=== PATIENT | male | born 1945 | race Hispanic/Latino ===

== ENCOUNTER 2021-01-25 16:30 | Inpatient (IN) | payer OTHER ==
[~2021-01-25] VITALS: Ht 185.4 cm; Wt 82.8 kg
[2021-01-25 17:44] LABS: BASOPHILS # (AUTO) 0.1 (0.0-0.1); BASOPHILS % 1.4 % (0.0-1.0); EOSINOPHILS # (AUTO) 0.4 (0.0-0.4); EOSINOPHILS % 5.5 % (0.0-6.0); HEMATOCRIT 31.2 % (38.2-49.6); HEMOGLOBIN 9.1 g/dL (14.0-18.0); LYMPHOCYTES # (AUTO) 0.5 (1.0-3.2); LYMPHOCYTES % 7.6 % (18.0-39.1); MEAN CORPUSCULAR HEMOGLOBIN 28.1 pg (28-32); MEAN CORPUSCULAR HGB CONC 29.2 g/dL (31-35); MEAN CORPUSCULAR VOLUME 96.3 fL (81-99); MONOCYTES # (AUTO) 0.4 (0.2-0.8); MONOCYTES % 6.2 % (4.4-11.3); NEUTROPHILS # (AUTO) 5.1 (2.1-6.9); PLATELET COUNT 195 x10e3/uL (140-360); RED BLOOD COUNT 3.24 x10e6/uL (4.3-5.7); RED CELL DISTRIBUTION WIDTH 19.6 % (11.7-14.4)
[2021-01-25 17:50] LABS: INR 2.55; PROTHROMBIN TIME 29.4 seconds (11.9-14.5)
[2021-01-25 17:51] LABS: PARTIAL THROMBOPLASTIN TIME 40.5 seconds (23.8-35.5)
[2021-01-25 18:04] LABS: AMPHETAMINES SCREEN,URINE NEGATIVE (NEGATIVE); BENZODIAZEPINES SCREEN,URINE NEGATIVE (NEGATIVE); PHENCYCLIDINE SCREEN,URINE NEGATIVE (NEGATIVE)
[2021-01-25 18:07] LABS: CLARITY,URINE CLOUDY (CLEAR); COLOR,URINE AMBER (YELLOW); KETONES,URINE NEGATIVE (NEGATIVE); LEUKOCYTE ESTERASE ,URINE NEGATIVE (NEGATIVE); NITRITE,URINE NEGATIVE (NEGATIVE); PROTEIN,URINE DIPSTICK 2+ (NEGATIVE); RBC,URINE >50 /HPF (0-5); URINE UROBILINOGEN 0.2 mg/dL (0.2 - 1)
[2021-01-25 18:08] LABS: ALBUMIN 1.4 g/dL (3.5-5.0); ALBUMIN/GLOBULIN RATIO 0.3 (0.8-2.0); ANION GAP 19.1 mmol/L (8-16); CALCIUM 7.5 mg/dL (8.4-10.2); CREATININE, SERUM 7.28 mg/dL (0.72-1.25); POTASSIUM 5.1 mmol/L (3.5-5.1)
[2021-01-25 18:09] LABS: CREATINE KINASE MB 1.9 ng/mL (0-5.0)
[2021-01-25 18:22] LABS: BACTERIA,URINE MANY /HPF; EPITHELIAL CELLS,URINE FEW /LPF
[2021-01-25 18:59] LABS: ABG HCO3 17 mmol/L (22-26); ABG PCO2 36 mmHg (35-45); ABG PH 7.29 (7.35-7.45); ABG PO2 172 mmHg (80-105); ABG TCO2 18
[2021-01-25 21:00] VITALS: BP 107/72
[2021-01-25] MEDS ORDERED: PIPERACILLIN/TAZOBACTAM 3.375 GM in SODIUM CHLORIDE 0.9% 50ML 50 ML IV ONE (21:00)
[2021-01-25] MEDS: PIPERACILLIN/TAZOBACTAM 2.25 GM in SODIUM CHLORIDE 0.9% 50ML 50 ML IV SCH (21:00)
[2021-01-25] MEDS ORDERED: ONDANSETRON HCL INJ 2MG/ML 2ML 2 MG/ML VIAL IV PRN (21:45)
[2021-01-25 22:00] VITALS: BP 142/62
[2021-01-26] VITALS (8 sets, daily range): BP systolic 97–108; BP diastolic 59–78
[2021-01-26] MEDS ORDERED: METOPROLOL SUCC25 MG PO (00:15)
[2021-01-26] MEDS ORDERED: HYDROXYZINE HCL10 MG PO (00:15)
[2021-01-26] MEDS ORDERED: PLAVIX75 MG PO (00:15)
[2021-01-26] MEDS ORDERED: LEXAPRO10 MG PO (00:15)
[2021-01-26] MEDS ORDERED: KEPPRA500 MG PO (00:16)
[2021-01-26] MEDS ORDERED: XARELTO20 MG PO (00:16)
[2021-01-26] MEDS: PIPERACILLIN/TAZOBACTAM 2.25 GM in SODIUM CHLORIDE 0.9% 50ML 50 ML IV SCH ×3 (05:06→21:12)
[2021-01-26 05:41] LABS: BASOPHILS # (AUTO) 0.1 (0.0-0.1); EOSINOPHILS # (AUTO) 0.2 (0.0-0.4); EOSINOPHILS % 3.7 % (0.0-6.0); HEMATOCRIT 31.2 % (38.2-49.6); HEMOGLOBIN 9.1 g/dL (14.0-18.0); LYMPHOCYTES # (AUTO) 0.7 (1.0-3.2); LYMPHOCYTES % 13.3 % (18.0-39.1); MEAN CORPUSCULAR HEMOGLOBIN 28.4 pg (28-32); MEAN CORPUSCULAR HGB CONC 29.2 g/dL (31-35); MEAN CORPUSCULAR VOLUME 97.5 fL (81-99); MONOCYTES # (AUTO) 0.7 (0.2-0.8); MONOCYTES % 14.5 % (4.4-11.3); NEUTROPHILS # (AUTO) 3.4 (2.1-6.9); NEUTROPHILS % 67.3 % (38.7-80.0); PLATELET COUNT 165 x10e3/uL (140-360); RED CELL DISTRIBUTION WIDTH 19.5 % (11.7-14.4)
[2021-01-26 06:14] LABS: ALBUMIN 1.3 g/dL (3.5-5.0); ALBUMIN/GLOBULIN RATIO 0.2 (0.8-2.0); ANION GAP 18.8 mmol/L (8-16); CALCIUM 7.8 mg/dL (8.4-10.2); CREATININE, SERUM 7.4 mg/dL (0.72-1.25); POTASSIUM 4.8 mmol/L (3.5-5.1)
[2021-01-26 06:49] LABS: CREATINE KINASE MB 1.9 ng/mL (0-5.0)
[2021-01-26 08:18] LABS: % IRON SATURATION 27 % (15-50); IRON 43 ug/dL (65-175); TOTAL IRON BINDING CAPACITY 157 ug/dL (261-478); TRANSFERRIN 112 mg/dL (174-364)
[2021-01-26 08:28] LABS: ANISOCYTOSIS MODERATE; HYPOCHROMASIA SLIGHT; PLATELET ESTIMATE ADEQUATE; PLATELET MORPHOLOGY COMMENT NORMAL; RBC MORPHOLOGY COMMENT ABNORMAL
[2021-01-26] MEDS ORDERED: LIDOCAINE HCL 1% LOCAL INJ 20 ML VIAL ONE (12:07)
[2021-01-26] MEDS ORDERED: LIDOCAINE HCL 2% LOCAL 20 ML VIAL ONE (12:28)
[2021-01-26] MEDS ORDERED: HEPARIN SOD/SOD CHLORIDE 1,000 ML ONE (12:29)
[2021-01-26] MEDS ORDERED: HEPARIN SOD (PORCINE) 1000 UNIT/ML SDV IV PRN (14:15)
[2021-01-26] MEDS ORDERED: SODIUM CHLORIDE 0.9% 1000ML 2,000 ML IV PRN (14:15)
[2021-01-26] MEDS ORDERED: MANNITOL 25% 12.5GM/50 ML VIAL IV PRN (14:15)
[2021-01-26] MEDS: IRON SUCROSE 100 MG in SODIUM CHLORIDE 0.9% 100 ML 100 ML IV SCH (16:40)
[2021-01-26] MEDS: SODIUM BICARBONATE 8.4% 150 ML in DEXTROSE 5% 1,000 ML IV SCH (16:40)
[2021-01-26 19:06] LABS: FERRITIN 329.26 ng/mL (21.81-274.66); THYROID STIMULATING HORMONE 1.755 uIU/mL (0.350-4.940)
[2021-01-26 19:14] LABS: CREATINE KINASE MB 2.1 ng/mL (0-5.0)
[2021-01-26 20:55] LABS: CREATINE KINASE MB 2.2 ng/mL (0-5.0)
[2021-01-26] MEDS: HEPARIN SOD (PORCINE) 5,000 UNIT/ML VIAL SC SCH (22:00)
[2021-01-26] MEDS: Morphine 2mg Syringe 2 MG/ML SYR IV PRN (22:40)
[2021-01-27] VITALS (8 sets, daily range): BP systolic 90–159; BP diastolic 50–84
[2021-01-27 05:56] LABS: BASOPHILS % 0.8 % (0.0-1.0); EOSINOPHILS # (AUTO) 0.4 (0.0-0.4); EOSINOPHILS % 8.4 % (0.0-6.0); HEMATOCRIT 25.7 % (38.2-49.6); HEMOGLOBIN 7.8 g/dL (14.0-18.0); LYMPHOCYTES # (AUTO) 0.5 (1.0-3.2); LYMPHOCYTES % 10.1 % (18.0-39.1); MEAN CORPUSCULAR HEMOGLOBIN 28.2 pg (28-32); MEAN CORPUSCULAR HGB CONC 30.4 g/dL (31-35); MEAN CORPUSCULAR VOLUME 92.8 fL (81-99); MONOCYTES # (AUTO) 0.6 (0.2-0.8); MONOCYTES % 13.5 % (4.4-11.3); NEUTROPHILS # (AUTO) 3.2 (2.1-6.9); NEUTROPHILS % 66.8 % (38.7-80.0); RED BLOOD COUNT 2.77 x10e6/uL (4.3-5.7); RED CELL DISTRIBUTION WIDTH 19.7 % (11.7-14.4)
[2021-01-27] MEDS: PIPERACILLIN/TAZOBACTAM 2.25 GM in SODIUM CHLORIDE 0.9% 50ML 50 ML IV SCH ×3 (06:00→21:57)
[2021-01-27] MEDS: HEPARIN SOD (PORCINE) 5,000 UNIT/ML VIAL SC SCH ×3 (06:00→22:07)
[2021-01-27 06:19] LABS: ALBUMIN 1.1 g/dL (3.5-5.0); ALBUMIN/GLOBULIN RATIO 0.2 (0.8-2.0); ANION GAP 16.2 mmol/L (8-16); CALCIUM 7.2 mg/dL (8.4-10.2); CREATININE, SERUM 5.76 mg/dL (0.72-1.25); POTASSIUM 4.2 mmol/L (3.5-5.1)
[2021-01-27 06:40] LABS: PLATELET COUNT 130 x10e3/uL (140-360)
[2021-01-27] MEDS: SODIUM BICARBONATE 8.4% 150 ML in DEXTROSE 5% 1,000 ML IV SCH (12:12)
[2021-01-27] MEDS ORDERED: SODIUM CHLORIDE 0.9% 100 ML ONE (13:48)
[2021-01-27] MEDS ORDERED: PNEUMOCOCCAL VACCINE POLYVALENT 23 MCG/0.5 ML VIAL IM SCH (14:00)
[2021-01-27] MEDS ORDERED: INFLUENZA VIRUS VAC SPLIT INJ 0.5 ML SYR IM SCH (14:00)
[2021-01-27] MEDS: IRON SUCROSE 100 MG in SODIUM CHLORIDE 0.9% 100 ML 100 ML IV SCH (14:26)
[2021-01-27] MEDS: BUMETANIDE INJ 0.25MG/ML 4ML VIAL IV SCH ×2 (15:54→21:56)
[2021-01-28] VITALS (7 sets, daily range): BP systolic 73–116; BP diastolic 41–59
[2021-01-28] MEDS: PIPERACILLIN/TAZOBACTAM 2.25 GM in SODIUM CHLORIDE 0.9% 50ML 50 ML IV SCH ×3 (05:26→21:23)
[2021-01-28] MEDS: BUMETANIDE INJ 0.25MG/ML 4ML VIAL IV SCH ×3 (05:26→21:23)
[2021-01-28] MEDS: SODIUM BICARBONATE 8.4% 150 ML in DEXTROSE 5% 1,000 ML IV SCH (05:27)
[2021-01-28] MEDS: HEPARIN SOD (PORCINE) 5,000 UNIT/ML VIAL SC SCH ×3 (05:37→21:23)
[2021-01-28 06:05] LABS: ALBUMIN/GLOBULIN RATIO 0.2 (0.8-2.0); ALKALINE PHOSPHATASE 98 IU/L (40-150); ANION GAP 13.8 mmol/L (8-16); BLOOD UREA NITROGEN 55 mg/dL (7-26); BUN/CREATININE RATIO 14 (6-25); CARBON DIOXIDE 27 mmol/L (22-29); CHLORIDE 106 mmol/L (98-107); CREATININE, SERUM 3.99 mg/dL (0.72-1.25); EST GLOMERULAR FILTRATION RATE 15 ML/MIN (60-); GLUCOSE 74 mg/dL (74-118); POTASSIUM 3.8 mmol/L (3.5-5.1); SODIUM 143 mmol/L (136-145)
[2021-01-28 06:12] LABS: ALANINE AMINOTRANSFERASE < 6 IU/L (0-55)
[2021-01-28 06:13] LABS: CALCIUM 6.8 mg/dL (8.4-10.2)
[2021-01-28 07:25] LABS: BASOPHILS # (AUTO) 0.1 (0.0-0.1); BASOPHILS % 1.4 % (0.0-1.0); EOSINOPHILS # (AUTO) 0.6 (0.0-0.4); EOSINOPHILS % 11.8 % (0.0-6.0); HEMATOCRIT 24.5 % (38.2-49.6); HEMOGLOBIN 7.3 g/dL (14.0-18.0); LYMPHOCYTES # (AUTO) 0.7 (1.0-3.2); LYMPHOCYTES % 14.4 % (18.0-39.1); MEAN CORPUSCULAR HEMOGLOBIN 27.9 pg (28-32); MEAN CORPUSCULAR HGB CONC 29.8 g/dL (31-35); MEAN CORPUSCULAR VOLUME 93.5 fL (81-99); MONOCYTES # (AUTO) 0.7 (0.2-0.8); MONOCYTES % 14.4 % (4.4-11.3); NEUTROPHILS # (AUTO) 2.8 (2.1-6.9); NEUTROPHILS % 57.8 % (38.7-80.0); PLATELET COUNT 120 x10e3/uL (140-360); RED BLOOD COUNT 2.62 x10e6/uL (4.3-5.7); RED CELL DISTRIBUTION WIDTH 20.1 % (11.7-14.4)
[2021-01-28] MEDS: METOPROLOL SUCCINATE 25 MG TAB XL PO SCH (09:00)
[2021-01-28] MEDS ORDERED: CALCIUM GLUCONATE 10% INJ 4.65 MEQ in SODIUM CHLORIDE 0.9% 50ML 50 ML IV ONE (09:45)
[2021-01-28] MEDS: HYDROCODONE/APAP 5MG-325MG TAB PO PRN (10:54)
[2021-01-28] MEDS: IRON SUCROSE 100 MG in SODIUM CHLORIDE 0.9% 100 ML 100 ML IV SCH (12:20)
[2021-01-28] MEDS ORDERED: SODIUM CHLORIDE 0.9% 250ML 500 ML IV PRN (13:30)
[2021-01-28] MEDS ORDERED: ALBUMIN 25% 12.5GM 0.25 GM/ML BTL IV PRN (13:30)
[2021-01-28] MEDS: Morphine 2mg Syringe 2 MG/ML SYR IV PRN (22:45)
[2021-01-29] VITALS (7 sets, daily range): BP systolic 97–126; BP diastolic 46–87
[2021-01-29] MEDS: BUMETANIDE INJ 0.25MG/ML 4ML VIAL IV SCH (05:09)
[2021-01-29] MEDS: PIPERACILLIN/TAZOBACTAM 2.25 GM in SODIUM CHLORIDE 0.9% 50ML 50 ML IV SCH ×3 (05:09→21:45)
[2021-01-29] MEDS: HEPARIN SOD (PORCINE) 5,000 UNIT/ML VIAL SC SCH ×3 (05:10→21:46)
[2021-01-29 05:59] LABS: BASOPHILS % 0.9 % (0.0-1.0); EOSINOPHILS # (AUTO) 0.2 (0.0-0.4); HEMATOCRIT 26.4 % (38.2-49.6); LYMPHOCYTES # (AUTO) 0.3 (1.0-3.2); MEAN CORPUSCULAR HEMOGLOBIN 28.5 pg (28-32); MEAN CORPUSCULAR HGB CONC 30.3 g/dL (31-35); MONOCYTES # (AUTO) 0.5 (0.2-0.8); MONOCYTES % 10.6 % (4.4-11.3); NEUTROPHILS # (AUTO) 3.4 (2.1-6.9); NEUTROPHILS % 76.3 % (38.7-80.0); PLATELET COUNT 105 x10e3/uL (140-360); RED BLOOD COUNT 2.81 x10e6/uL (4.3-5.7); RED CELL DISTRIBUTION WIDTH 20.1 % (11.7-14.4)
[2021-01-29 06:25] LABS: ANION GAP 12.7 mmol/L (8-16); CALCIUM 7.8 mg/dL (8.4-10.2); CREATININE, SERUM 2.77 mg/dL (0.72-1.25); MAGNESIUM 1.9 MG/DL (1.3-2.1); POTASSIUM 3.7 mmol/L (3.5-5.1)
[2021-01-29 06:26] LABS: CALCIUM IONIZED 1.1 mmol/L (1.09-1.30)
[2021-01-29] MEDS: METOPROLOL SUCCINATE 25 MG TAB XL PO SCH (08:23)
[2021-01-29] MEDS: IRON SUCROSE 100 MG in SODIUM CHLORIDE 0.9% 100 ML 100 ML IV SCH (12:22)
[2021-01-29] MEDS: BUMETANIDE 1 MG TAB PO SCH (15:35)
[2021-01-30] VITALS (9 sets, daily range): BP systolic 97–148; BP diastolic 60–85
[2021-01-30] MEDS: HYDROCODONE/APAP 5MG-325MG TAB PO PRN (01:59)
[2021-01-30] MEDS: PIPERACILLIN/TAZOBACTAM 2.25 GM in SODIUM CHLORIDE 0.9% 50ML 50 ML IV SCH ×3 (05:18→21:00)
[2021-01-30 05:24] LABS: ALBUMIN 1.5 g/dL (3.5-5.0); ALBUMIN/GLOBULIN RATIO 0.3 (0.8-2.0); ALKALINE PHOSPHATASE 138 IU/L (40-150); ANION GAP 15.7 mmol/L (8-16); BLOOD UREA NITROGEN 33 mg/dL (7-26); BUN/CREATININE RATIO 10 (6-25); CALCIUM 7.3 mg/dL (8.4-10.2); CARBON DIOXIDE 26 mmol/L (22-29); CHLORIDE 104 mmol/L (98-107); CREATININE, SERUM 3.38 mg/dL (0.72-1.25); EST GLOMERULAR FILTRATION RATE 18 ML/MIN (60-); POTASSIUM 3.7 mmol/L (3.5-5.1); SODIUM 142 mmol/L (136-145)
[2021-01-30] MEDS: HEPARIN SOD (PORCINE) 5,000 UNIT/ML VIAL SC SCH ×3 (05:25→21:04)
[2021-01-30 05:29] LABS: ALANINE AMINOTRANSFERASE < 6 IU/L (0-55)
[2021-01-30 05:30] LABS: GLUCOSE 58 mg/dL (74-118)
[2021-01-30] MEDS ORDERED: DEXTROSE 50% SYRINGE 50 ML IV ONE (05:53)
[2021-01-30] MEDS: BUMETANIDE 1 MG TAB PO SCH ×2 (08:07→17:01)
[2021-01-30] MEDS: METOPROLOL SUCCINATE 25 MG TAB XL PO SCH (08:07)
[2021-01-30] MEDS ORDERED: EPOETIN ALFA-EPBX 10,000 UNIT/ML VIAL SC ONE (11:45)
[2021-01-30] MEDS ORDERED: SODIUM CHLORIDE 0.9% 250ML 500 ML IV PRN (12:00)
[2021-01-30] MEDS ORDERED: SODIUM CHLORIDE 0.9% 1000ML 2,000 ML IV PRN (12:00)
[2021-01-30] MEDS: IRON SUCROSE 100 MG in SODIUM CHLORIDE 0.9% 100 ML 100 ML IV SCH (13:43)
[2021-01-30] MEDS: LORAZEPAM INJ 2 MG/ML VIAL IV PRN (17:01)
[2021-01-31] VITALS (9 sets, daily range): BP systolic 110–168; BP diastolic 69–91
[2021-01-31] MEDS: PIPERACILLIN/TAZOBACTAM 2.25 GM in SODIUM CHLORIDE 0.9% 50ML 50 ML IV SCH ×3 (05:13→21:34)
[2021-01-31] MEDS: HEPARIN SOD (PORCINE) 5,000 UNIT/ML VIAL SC SCH ×3 (05:24→21:40)
[2021-01-31] MEDS: BUMETANIDE 1 MG TAB PO SCH ×3 (08:41→16:40)
[2021-01-31] MEDS: METOPROLOL SUCCINATE 25 MG TAB XL PO SCH ×2 (08:41→09:00)
[2021-01-31] MEDS: LORAZEPAM INJ 2 MG/ML VIAL IV PRN ×2 (09:30→22:56)
[2021-01-31] MEDS: IRON SUCROSE 100 MG in SODIUM CHLORIDE 0.9% 100 ML 100 ML IV SCH (12:57)
[2021-01-31] MEDS: Morphine 2mg Syringe 2 MG/ML SYR IV PRN (20:28)
[2021-02-01] VITALS (8 sets, daily range): BP systolic 109–153; BP diastolic 59–84
[2021-02-01] MEDS: PIPERACILLIN/TAZOBACTAM 2.25 GM in SODIUM CHLORIDE 0.9% 50ML 50 ML IV SCH ×3 (06:42→22:00)
[2021-02-01] MEDS: HEPARIN SOD (PORCINE) 5,000 UNIT/ML VIAL SC SCH ×3 (06:43→22:00)
[2021-02-01] MEDS: BUMETANIDE 1 MG TAB PO SCH ×2 (09:03→16:02)
[2021-02-01] MEDS: METOPROLOL SUCCINATE 25 MG TAB XL PO SCH (09:04)
[2021-02-01] MEDS: IRON SUCROSE 100 MG in SODIUM CHLORIDE 0.9% 100 ML 100 ML IV SCH (11:51)
[2021-02-01 12:46] LABS: ALBUMIN 1.3 g/dL (3.5-5.0); ALBUMIN/GLOBULIN RATIO 0.3 (0.8-2.0); ALKALINE PHOSPHATASE 112 IU/L (40-150); ANION GAP 15.8 mmol/L (8-16); BLOOD UREA NITROGEN 21 mg/dL (7-26); BUN/CREATININE RATIO 6 (6-25); CALCIUM 7.8 mg/dL (8.4-10.2); CARBON DIOXIDE 21 mmol/L (22-29); CHLORIDE 108 mmol/L (98-107); CREATININE, SERUM 3.24 mg/dL (0.72-1.25); EST GLOMERULAR FILTRATION RATE 19 ML/MIN (60-); GLUCOSE 61 mg/dL (74-118); POTASSIUM 3.8 mmol/L (3.5-5.1); SODIUM 141 mmol/L (136-145)
[2021-02-01 12:53] LABS: ALANINE AMINOTRANSFERASE < 6 IU/L (0-55)
[2021-02-01] MEDS: HYDROCODONE/APAP 5MG-325MG TAB PO PRN (17:32)
[2021-02-01 17:59] LABS: INR 1.35; PROTHROMBIN TIME 17.8 seconds (11.9-14.5)
[2021-02-01 18:00] LABS: PARTIAL THROMBOPLASTIN TIME 54.3 seconds (23.8-35.5)
[2021-02-02] VITALS (7 sets, daily range): BP systolic 103–116; BP diastolic 64–78
[2021-02-02 04:58] LABS: BASOPHILS # (AUTO) 0.1 (0.0-0.1); BASOPHILS % 1.6 % (0.0-1.0); EOSINOPHILS # (AUTO) 0.4 (0.0-0.4); EOSINOPHILS % 8.7 % (0.0-6.0); HEMATOCRIT 26.5 % (38.2-49.6); HEMOGLOBIN 8.1 g/dL (14.0-18.0); LYMPHOCYTES # (AUTO) 0.6 (1.0-3.2); LYMPHOCYTES % 10.9 % (18.0-39.1); MEAN CORPUSCULAR HEMOGLOBIN 28.6 pg (28-32); MEAN CORPUSCULAR HGB CONC 30.6 g/dL (31-35); MEAN CORPUSCULAR VOLUME 93.6 fL (81-99); MONOCYTES # (AUTO) 0.6 (0.2-0.8); MONOCYTES % 12.3 % (4.4-11.3); NEUTROPHILS # (AUTO) 3.3 (2.1-6.9); NEUTROPHILS % 66.3 % (38.7-80.0); PLATELET COUNT 117 x10e3/uL (140-360); RED BLOOD COUNT 2.83 x10e6/uL (4.3-5.7); RED CELL DISTRIBUTION WIDTH 20.4 % (11.7-14.4)
[2021-02-02 05:06] LABS: INR 1.4; PROTHROMBIN TIME 18.3 seconds (11.9-14.5)
[2021-02-02 05:29] LABS: ANION GAP 13.4 mmol/L (8-16); CALCIUM 7.5 mg/dL (8.4-10.2); CREATININE, SERUM 2.25 mg/dL (0.72-1.25); MAGNESIUM 1.7 MG/DL (1.3-2.1); POTASSIUM 3.4 mmol/L (3.5-5.1)
[2021-02-02] MEDS: PIPERACILLIN/TAZOBACTAM 2.25 GM in SODIUM CHLORIDE 0.9% 50ML 50 ML IV SCH ×3 (06:00→22:00)
[2021-02-02] MEDS: BUMETANIDE 1 MG TAB PO SCH ×2 (07:48→16:28)
[2021-02-02] MEDS: METOPROLOL SUCCINATE 25 MG TAB XL PO SCH (07:48)
[2021-02-02] MEDS: HYDROCODONE/APAP 5MG-325MG TAB PO PRN (10:31)
[2021-02-02] MEDS: IRON SUCROSE 100 MG in SODIUM CHLORIDE 0.9% 100 ML 100 ML IV SCH (11:18)
[2021-02-02] MEDS: HEPARIN SOD (PORCINE) 5,000 UNIT/ML VIAL SC SCH (13:07)
[2021-02-02] MEDS ORDERED: FENTANYL CITRATE/PF 100MCG/2 ML INJ ONE (13:32)
[2021-02-02] MEDS ORDERED: HEPARIN SOD (PORCINE) 1000 UNIT/ML SDV ONE (13:32)
[2021-02-02] MEDS ORDERED: MIDAZOLAM HCL 2 MG/2 ML VIAL ONE (13:32)
[2021-02-02] MEDS ORDERED: SODIUM CHLORIDE 0.9% 250ML 250 ML ONE (13:50)
[2021-02-02] MEDS ORDERED: LIDOCAINE HCL 1% LOCAL INJ 20 ML VIAL ONE (13:50)
[2021-02-03] VITALS: BP 119/80
[2021-02-03 04:47] VITALS: BP 115/82
[2021-02-03 05:02] LABS: BASOPHILS # (AUTO) 0.1 (0.0-0.1); BASOPHILS % 1.3 % (0.0-1.0); EOSINOPHILS # (AUTO) 0.4 (0.0-0.4); EOSINOPHILS % 7.1 % (0.0-6.0); HEMATOCRIT 27.9 % (38.2-49.6); HEMOGLOBIN 8.4 g/dL (14.0-18.0); LYMPHOCYTES # (AUTO) 0.7 (1.0-3.2); LYMPHOCYTES % 11.8 % (18.0-39.1); MEAN CORPUSCULAR HEMOGLOBIN 28.2 pg (28-32); MEAN CORPUSCULAR HGB CONC 30.1 g/dL (31-35); MEAN CORPUSCULAR VOLUME 93.6 fL (81-99); MONOCYTES # (AUTO) 0.8 (0.2-0.8); MONOCYTES % 15.2 % (4.4-11.3); NEUTROPHILS # (AUTO) 3.6 (2.1-6.9); NEUTROPHILS % 64.4 % (38.7-80.0); PLATELET COUNT 138 x10e3/uL (140-360); RED BLOOD COUNT 2.98 x10e6/uL (4.3-5.7); RED CELL DISTRIBUTION WIDTH 20.5 % (11.7-14.4)
[2021-02-03] MEDS: PIPERACILLIN/TAZOBACTAM 2.25 GM in SODIUM CHLORIDE 0.9% 50ML 50 ML IV SCH ×3 (05:02→23:55)
[2021-02-03 05:38] LABS: ALBUMIN 1.4 g/dL (3.5-5.0); ALBUMIN/GLOBULIN RATIO 0.3 (0.8-2.0); ALKALINE PHOSPHATASE 140 IU/L (40-150); ANION GAP 15.6 mmol/L (8-16); BLOOD UREA NITROGEN 17 mg/dL (7-26); BUN/CREATININE RATIO 6 (6-25); CALCIUM 7.8 mg/dL (8.4-10.2); CARBON DIOXIDE 23 mmol/L (22-29); CHLORIDE 106 mmol/L (98-107); CREATININE, SERUM 2.98 mg/dL (0.72-1.25); EST GLOMERULAR FILTRATION RATE 21 ML/MIN (60-); POTASSIUM 3.6 mmol/L (3.5-5.1); SODIUM 141 mmol/L (136-145)
[2021-02-03 05:54] LABS: ALANINE AMINOTRANSFERASE < 6 IU/L (0-55)
[2021-02-03 05:56] LABS: GLUCOSE 51 mg/dL (74-118)
[2021-02-03] MEDS ORDERED: DEXTROSE 50% SYRINGE 50 ML IV ONE (06:25)
[2021-02-03 07:36] VITALS: BP 114/69
[2021-02-03] MEDS ORDERED: HEPARIN SOD (PORCINE) 1000 UNIT/ML SDV IV PRN ×2 (08:30)
[2021-02-03] MEDS ORDERED: HEPARIN SOD (PORCINE) 1000 UNIT/ML SDV ONE (08:32)
[2021-02-03 08:50] VITALS: BP 114/69
[2021-02-03] MEDS: METOPROLOL SUCCINATE 25 MG TAB XL PO SCH (09:00)
[2021-02-03] MEDS: BUMETANIDE 1 MG TAB PO SCH ×2 (09:48→17:19)
[2021-02-03] MEDS: EPOETIN ALFA-EPBX 10,000 UNIT/ML VIAL SC SCH (11:19)
[2021-02-03] MEDS ORDERED: MAGNESIUM HYDROXIDE 30 ML UDC PO PRN (11:30)
[2021-02-03] MEDS: IRON SUCROSE 100 MG in SODIUM CHLORIDE 0.9% 100 ML 100 ML IV SCH (13:30)
[2021-02-03 20:00] VITALS: BP 125/80
[2021-02-03 21:00] VITALS: BP 125/80
[2021-02-04] VITALS: BP 113/73
[2021-02-04 04:00] VITALS: BP 111/67
[2021-02-04 05:23] LABS: ANION GAP 16.5 mmol/L (8-16); CALCIUM 7.6 mg/dL (8.4-10.2); CREATININE, SERUM 2.22 mg/dL (0.72-1.25); POTASSIUM 3.5 mmol/L (3.5-5.1)
[2021-02-04] MEDS: PIPERACILLIN/TAZOBACTAM 2.25 GM in SODIUM CHLORIDE 0.9% 50ML 50 ML IV SCH ×2 (05:52→15:12)
[2021-02-04] MEDS: METOPROLOL SUCCINATE 25 MG TAB XL PO SCH (09:00)
[2021-02-04] MEDS: BUMETANIDE 1 MG TAB PO SCH ×2 (09:00→17:19)
[2021-02-04] MEDS: ALBUTEROL/IPRATROPIUM 3 ML NEB NEB SCH ×4 (12:10→22:50)
[2021-02-04] MEDS: IRON SUCROSE 100 MG in SODIUM CHLORIDE 0.9% 100 ML 100 ML IV SCH (13:01)
[2021-02-04 18:00] LABS: CHOL/HDL RATIO 3.7 (3.9-4.7)
[2021-02-04 20:00] VITALS: BP 140/85
[2021-02-04] MEDS: ACETAMINOPHEN 325 MG TAB PO PRN (20:19)
[2021-02-04 21:30] VITALS: BP 140/85
[2021-02-05] VITALS (8 sets, daily range): BP systolic 96–112; BP diastolic 52–83
[2021-02-05] MEDS: ALBUTEROL/IPRATROPIUM 3 ML NEB NEB SCH ×6 (02:35→22:15)
[2021-02-05 04:54] LABS: CALCIUM IONIZED 1.1 mmol/L (1.09-1.30)
[2021-02-05 05:21] LABS: ANION GAP 12.4 mmol/L (8-16); CALCIUM 7.2 mg/dL (8.4-10.2); CREATININE, SERUM 2.88 mg/dL (0.72-1.25); POTASSIUM 3.4 mmol/L (3.5-5.1)
[2021-02-05] MEDS: BUMETANIDE 1 MG TAB PO SCH ×2 (08:35→17:11)
[2021-02-05] MEDS: ASPIRIN 81 MG ENTERIC COATED PO SCH (08:35)
[2021-02-05] MEDS: METOPROLOL SUCCINATE 25 MG TAB XL PO SCH (08:36)
[2021-02-05] MEDS: EPOETIN ALFA-EPBX 10,000 UNIT/ML VIAL SC SCH (10:07)
[2021-02-05] MEDS: IRON SUCROSE 100 MG in SODIUM CHLORIDE 0.9% 100 ML 100 ML IV SCH (13:08)
[2021-02-05] MEDS: ACETAMINOPHEN 325 MG TAB PO PRN (19:43)
[2021-02-06] VITALS (8 sets, daily range): BP systolic 94–119; BP diastolic 66–96
[2021-02-06] MEDS: ALBUTEROL/IPRATROPIUM 3 ML NEB NEB SCH ×6 (02:25→22:52)
[2021-02-06] MEDS: BUMETANIDE 1 MG TAB PO SCH (09:00)
[2021-02-06] MEDS: ASPIRIN 81 MG ENTERIC COATED PO SCH (09:00)
[2021-02-06] MEDS: METOPROLOL SUCCINATE 25 MG TAB XL PO SCH (09:00)
[2021-02-06 12:30] LABS: BASOPHILS # (AUTO) 0.1 (0.0-0.1); BASOPHILS % 1.2 % (0.0-1.0); EOSINOPHILS # (AUTO) 0.4 (0.0-0.4); EOSINOPHILS % 7.4 % (0.0-6.0); HEMATOCRIT 28.7 % (38.2-49.6); HEMOGLOBIN 8.7 g/dL (14.0-18.0); LYMPHOCYTES # (AUTO) 0.4 (1.0-3.2); LYMPHOCYTES % 7.4 % (18.0-39.1); MEAN CORPUSCULAR HEMOGLOBIN 28.5 pg (28-32); MEAN CORPUSCULAR HGB CONC 30.3 g/dL (31-35); MEAN CORPUSCULAR VOLUME 94.1 fL (81-99); MONOCYTES # (AUTO) 0.8 (0.2-0.8); MONOCYTES % 15.3 % (4.4-11.3); NEUTROPHILS # (AUTO) 3.4 (2.1-6.9); NEUTROPHILS % 68.5 % (38.7-80.0); PLATELET COUNT 100 x10e3/uL (140-360); RED BLOOD COUNT 3.05 x10e6/uL (4.3-5.7); RED CELL DISTRIBUTION WIDTH 21.6 % (11.7-14.4)
[2021-02-06 12:49] LABS: ALBUMIN 1.6 g/dL (3.5-5.0); ALBUMIN/GLOBULIN RATIO 0.3 (0.8-2.0); ALKALINE PHOSPHATASE 127 IU/L (40-150); ANION GAP 13.5 mmol/L (8-16); BLOOD UREA NITROGEN 22 mg/dL (7-26); BUN/CREATININE RATIO 6 (6-25); CALCIUM 7.6 mg/dL (8.4-10.2); CARBON DIOXIDE 26 mmol/L (22-29); CHLORIDE 102 mmol/L (98-107); CREATININE, SERUM 3.77 mg/dL (0.72-1.25); EST GLOMERULAR FILTRATION RATE 16 ML/MIN (60-); GLUCOSE 101 mg/dL (74-118); POTASSIUM 3.5 mmol/L (3.5-5.1); SODIUM 138 mmol/L (136-145)
[2021-02-06 13:18] LABS: ALANINE AMINOTRANSFERASE < 6 IU/L (0-55)
[2021-02-06] MEDS ORDERED: FUROSEMIDE INJ 10 MG/ML 4 ML VIAL IV SCH ×2 (15:00→21:00)
[2021-02-06] MEDS: IRON SUCROSE 100 MG in SODIUM CHLORIDE 0.9% 100 ML 100 ML IV SCH (15:20)
[2021-02-06] MEDS ORDERED: POTASSIUM CHLORIDE 20 MEQ TAB CR PO ONE (15:30)
[2021-02-06] MEDS ORDERED: FUROSEMIDE INJ 10 MG/ML 4 ML VIAL IV ONE (16:00)
[2021-02-06] MEDS: CEFEPIME 1 GM in SODIUM CHLORIDE 0.9% 50ML 50 ML IV SCH (18:55)
[2021-02-06] MEDS: LEVOFLOXACIN 250MG/D5W 50ML 50 ML IV SCH (19:59)
[2021-02-06] MEDS: ACETAMINOPHEN 325 MG TAB PO PRN (22:14)
[2021-02-06] MEDS: ONDANSETRON HCL 4 MG ORAL DISINTEGRATING TAB PO PRN (22:14)
[2021-02-07] VITALS (8 sets, daily range): BP systolic 100–110; BP diastolic 68–86
[2021-02-07] MEDS: ALBUTEROL/IPRATROPIUM 3 ML NEB NEB SCH ×6 (03:00→22:58)
[2021-02-07 06:43] LABS: BASOPHILS # (AUTO) 0.1 (0.0-0.1); BASOPHILS % 1.4 % (0.0-1.0); EOSINOPHILS # (AUTO) 0.5 (0.0-0.4); EOSINOPHILS % 9.5 % (0.0-6.0); HEMATOCRIT 28.4 % (38.2-49.6); HEMOGLOBIN 8.5 g/dL (14.0-18.0); LYMPHOCYTES # (AUTO) 0.5 (1.0-3.2); LYMPHOCYTES % 9.5 % (18.0-39.1); MEAN CORPUSCULAR HEMOGLOBIN 28.6 pg (28-32); MEAN CORPUSCULAR HGB CONC 29.9 g/dL (31-35); MEAN CORPUSCULAR VOLUME 95.6 fL (81-99); MONOCYTES # (AUTO) 0.9 (0.2-0.8); MONOCYTES % 17.4 % (4.4-11.3); NEUTROPHILS # (AUTO) 3.1 (2.1-6.9); NEUTROPHILS % 61.8 % (38.7-80.0); PLATELET COUNT 93 x10e3/uL (140-360); RED BLOOD COUNT 2.97 x10e6/uL (4.3-5.7); RED CELL DISTRIBUTION WIDTH 21.5 % (11.7-14.4)
[2021-02-07 07:19] LABS: ALANINE AMINOTRANSFERASE < 6 IU/L (0-55); ALBUMIN 1.5 g/dL (3.5-5.0); ALBUMIN/GLOBULIN RATIO 0.3 (0.8-2.0); ALKALINE PHOSPHATASE 127 IU/L (40-150); ANION GAP 12.7 mmol/L (8-16); BLOOD UREA NITROGEN 25 mg/dL (7-26); BUN/CREATININE RATIO 6 (6-25); CALCIUM 7.4 mg/dL (8.4-10.2); CARBON DIOXIDE 25 mmol/L (22-29); CHLORIDE 103 mmol/L (98-107); CREATININE, SERUM 4.03 mg/dL (0.72-1.25); EST GLOMERULAR FILTRATION RATE 15 ML/MIN (60-); GLUCOSE 94 mg/dL (74-118); POTASSIUM 3.7 mmol/L (3.5-5.1); SODIUM 137 mmol/L (136-145)
[2021-02-07] MEDS: CEFEPIME 1 GM in SODIUM CHLORIDE 0.9% 50ML 50 ML IV SCH (08:34)
[2021-02-07] MEDS: ASPIRIN 81 MG ENTERIC COATED PO SCH (08:34)
[2021-02-07] MEDS: METOPROLOL SUCCINATE 25 MG TAB XL PO SCH (08:34)
[2021-02-07] MEDS: IRON SUCROSE 100 MG in SODIUM CHLORIDE 0.9% 100 ML 100 ML IV SCH (12:08)
[2021-02-07] MEDS: LEVOFLOXACIN 250MG/D5W 50ML 50 ML IV SCH (17:02)
[2021-02-08] VITALS (8 sets, daily range): BP systolic 90–114; BP diastolic 56–86
[2021-02-08 02:06] LABS: CLARITY,URINE CLOUDY (CLEAR); COLOR,URINE AMBER (YELLOW); KETONES,URINE NEGATIVE (NEGATIVE); LEUKOCYTE ESTERASE ,URINE TRACE (NEGATIVE); NITRITE,URINE NEGATIVE (NEGATIVE); PROTEIN,URINE DIPSTICK 2+ (NEGATIVE); URINE UROBILINOGEN 0.2 mg/dL (0.2 - 1)
[2021-02-08 02:13] LABS: BACTERIA,URINE MANY /HPF; EPITHELIAL CELLS,URINE FEW /LPF; RBC,URINE >50 /HPF (0-5); RENAL EPITHELIAL CELLS,URINE FEW; TRANSITIONAL EPI CELLS,URINE FEW; WBC,URINE (MAN) >50 /HPF (0-5)
[2021-02-08] MEDS: ALBUTEROL/IPRATROPIUM 3 ML NEB NEB SCH ×6 (03:00→22:25)
[2021-02-08] MEDS: ONDANSETRON HCL 4 MG ORAL DISINTEGRATING TAB PO PRN (03:54)
[2021-02-08 05:43] LABS: BASOPHILS # (AUTO) 0.1 (0.0-0.1); BASOPHILS % 1.6 % (0.0-1.0); EOSINOPHILS # (AUTO) 0.4 (0.0-0.4); HEMATOCRIT 27.3 % (38.2-49.6); LYMPHOCYTES # (AUTO) 0.4 (1.0-3.2); LYMPHOCYTES % 7.4 % (18.0-39.1); MEAN CORPUSCULAR HEMOGLOBIN 28.5 pg (28-32); MEAN CORPUSCULAR HGB CONC 29.3 g/dL (31-35); MEAN CORPUSCULAR VOLUME 97.2 fL (81-99); MONOCYTES # (AUTO) 0.8 (0.2-0.8); MONOCYTES % 16.1 % (4.4-11.3); NEUTROPHILS # (AUTO) 3.4 (2.1-6.9); NEUTROPHILS % 66.7 % (38.7-80.0); PLATELET COUNT 85 x10e3/uL (140-360); RED BLOOD COUNT 2.81 x10e6/uL (4.3-5.7); RED CELL DISTRIBUTION WIDTH 21.4 % (11.7-14.4)
[2021-02-08 06:34] LABS: ALBUMIN 1.5 g/dL (3.5-5.0); ALBUMIN/GLOBULIN RATIO 0.3 (0.8-2.0); ANION GAP 13.9 mmol/L (8-16); CALCIUM 7.4 mg/dL (8.4-10.2); CREATININE, SERUM 4.27 mg/dL (0.72-1.25); POTASSIUM 3.9 mmol/L (3.5-5.1)
[2021-02-08] MEDS: CEFEPIME 1 GM in SODIUM CHLORIDE 0.9% 50ML 50 ML IV SCH (08:34)
[2021-02-08] MEDS: METOPROLOL SUCCINATE 25 MG TAB XL PO SCH (08:42)
[2021-02-08] MEDS: ASPIRIN 81 MG ENTERIC COATED PO SCH (08:42)
[2021-02-08] MEDS: EPOETIN ALFA-EPBX 10,000 UNIT/ML VIAL SC SCH (09:51)
[2021-02-08 12:09] LABS: ALPHA 2 GLOBULIN URINE PEP 11.4 % (.)
[2021-02-08] MEDS ORDERED: SODIUM CHLORIDE 0.9% IV ONE (13:00)
[2021-02-08] MEDS ORDERED: BUMETANIDE IV ONE (13:00)
[2021-02-08] MEDS ORDERED: BUMETANIDE INJ 0.25MG/ML 4ML VIAL IV ONE (13:45)
[2021-02-08] MEDS ORDERED: ALBUMIN 5% 0.05 GM/ML BTL IV ONE (14:00)
[2021-02-08] MEDS ORDERED: ALBUMIN 5% 250ML 500 ML IV ONE (14:45)
[2021-02-08] MEDS: PREDNISONE 20 MG TAB PO SCH (17:00)
[2021-02-09] MEDS: ALBUTEROL/IPRATROPIUM 3 ML NEB NEB SCH ×4 (02:00→14:41)
[2021-02-09 05:53] LABS: ANION GAP 15.2 mmol/L (8-16); CALCIUM 7.5 mg/dL (8.4-10.2); CREATININE, SERUM 4.54 mg/dL (0.72-1.25); POTASSIUM 4.2 mmol/L (3.5-5.1)
[2021-02-09 05:55] VITALS: BP 137/57
[2021-02-09 08:20] VITALS: BP 112/86
[2021-02-09 08:52] VITALS: BP 112/86
[2021-02-09] MEDS: CEFEPIME 1 GM in SODIUM CHLORIDE 0.9% 50ML 50 ML IV SCH (08:54)
[2021-02-09] MEDS: PREDNISONE 20 MG TAB PO SCH (08:54)
[2021-02-09] MEDS: ASPIRIN 81 MG ENTERIC COATED PO SCH (08:54)
[2021-02-09] MEDS: METOPROLOL SUCCINATE 25 MG TAB XL PO SCH (08:59)
[2021-02-09] MEDS ORDERED: ASPIRIN EC81 MG PO (10:04)
[2021-02-09] MEDS ORDERED: ELIQUIS2.5 MG PO (10:04)
[2021-02-09] MEDS ORDERED: TOPROL XL25 MG PO (10:04)
[2021-02-09] MEDS ORDERED: LASIX40 MG PO (10:04)
[2021-02-09] MEDS ORDERED: AUGMENTIN 500-1 EACH PO (10:07)
[2021-02-09] MEDS ORDERED: ASPIRIN81 MG PO (17:52)
== END 2021-02-09 19:14 | disposition home or self-care (01) | DRG 673 ==
LOC: ER 16:34 → ERHOLD 21:36 → MED/SURG2 22:48
PROVIDERS: ADMIT Internal Medicine; ATTEND Internal Medicine
PROC: 02HV33Z Insertion of Infusion Device into Superior Vena Cava, Percutaneous Approach (ICD-10-PCS; 2021-01-26)
PROC: 5A1D70Z Performance of Urinary Filtration, Intermittent, Less than 6 Hours Per Day (ICD-10-PCS; 2021-01-26)
PROC: 0JH63XZ Insertion of Tunneled Vascular Access Device into Chest Subcutaneous Tissue and Fascia, Percutaneous Approach (ICD-10-PCS; principal; 2021-02-05)
PROC: 02HV33Z Insertion of Infusion Device into Superior Vena Cava, Percutaneous Approach (ICD-10-PCS; 2021-02-05)
PROC: 0JPT3XZ Removal of Tunneled Vascular Access Device from Trunk Subcutaneous Tissue and Fascia, Percutaneous Approach (ICD-10-PCS; 2021-02-05)
PROC: 02PYX3Z Removal of Infusion Device from Great Vessel, External Approach (ICD-10-PCS; 2021-02-05)
DX: N17.9 Acute kidney failure, unspecified (principal); G93.41 Metabolic encephalopathy; I50.23 Acute on chronic systolic (congestive) heart failure; J69.0 Pneumonitis due to inhalation of food and vomit; I12.0 Hypertensive chronic kidney disease with stage 5 chronic kidney disease or end stage renal disease; I31.3 Pericardial effusion (noninflammatory); I47.2 Ventricular tachycardia; I69.354 Hemiplegia and hemiparesis following cerebral infarction affecting left non-dominant side; E44.0 Moderate protein-calorie malnutrition; N18.6 End stage renal disease; I48.0 Paroxysmal atrial fibrillation; Z79.01 Long term (current) use of anticoagulants; E78.5 Hyperlipidemia, unspecified; G40.909 Epilepsy, unspecified, not intractable, without status epilepticus; E11.22 Type 2 diabetes mellitus with diabetic chronic kidney disease; Z79.899 Other long term (current) drug therapy; Z99.2 Dependence on renal dialysis; N40.0 Benign prostatic hyperplasia without lower urinary tract symptoms; D63.1 Anemia in chronic kidney disease; D50.9 Iron deficiency anemia, unspecified; I69.311 Memory deficit following cerebral infarction; F01.50 Vascular dementia, unspecified severity, without behavioral disturbance, psychotic disturbance, mood disturbance, and anxiety; Z74.01 Bed confinement status; Z20.822 Contact with and (suspected) exposure to COVID-19; R62.7 Adult failure to thrive; Z68.24 Body mass index [BMI] 24.0-24.9, adult
CPT/HCPCS: 36415; 36556; 36558; 36589; 36600; 70450; 70551; 71045; 71250; 74176; 74230; 74470; 76770; 76937; 77001; 80048; 80053; 80061; 80307; 81001; 82140; 82550; 82553; 82607; 82728; 82746; 82805; 82948; 83540; 83605; 83735; 83880; 83970; 84165; 84166; 84443; 84466; 84484; 84550; 85025; 85610; 85730; 86021; 86039; 86705; 86706; 87040; 87086; 87340; 93005; 93306; 93880; 93970; 93971; 94640; 94799; 97139; 99285; C1769; C1892; J0610; J0692; J1644; J1756; J1940; J1956; J2001; J2060; J2150; J2250; J2270; J2405; J2543; J3010; J7030; J7050; J7070; J7512; J7799; P9045; Q0162; U0002

== ENCOUNTER 2021-02-25 17:25 | Emergency (ER) | payer OTHER ==
[~2021-02-25] VITALS: Ht 185.4 cm; Wt 82.6 kg
[~2021-02-25 17:25] MED LIST: ASPIRIN EC81 MG PO; ASPIRIN81 MG PO; AUGMENTIN 500-1 EACH PO; ELIQUIS2.5 MG PO; HYDROXYZINE HCL10 MG PO; KEPPRA500 MG PO; LASIX40 MG PO; LEXAPRO10 MG PO; METOPROLOL SUCC25 MG PO; PLAVIX75 MG PO; TOPROL XL25 MG PO; XARELTO20 MG PO
[2021-02-25 18:03] LABS: COLOR,URINE STRAW (YELLOW)
[2021-02-25 18:04] LABS: CLARITY,URINE HAZY (CLEAR); KETONES,URINE NEGATIVE (NEGATIVE); LEUKOCYTE ESTERASE ,URINE SMALL (NEGATIVE); NITRITE,URINE NEGATIVE (NEGATIVE); PROTEIN,URINE DIPSTICK 1+ (NEGATIVE); URINE UROBILINOGEN 0.2 mg/dL (0.2 - 1)
[2021-02-25 18:16] LABS: BACTERIA,URINE MODERATE /HPF; RBC,URINE >50 /HPF (0-5)
[2021-02-25 18:17] LABS: YEAST,URINE FEW
[2021-02-25 18:39] VITALS: BP 122/79
== END 2021-02-25 19:55 | disposition home or self-care (01) ==
LOC: ER 17:32
DX: Z46.6 Encounter for fitting and adjustment of urinary device (principal); R33.9 Retention of urine, unspecified; N39.0 Urinary tract infection, site not specified; I69.320 Aphasia following cerebral infarction; I69.354 Hemiplegia and hemiparesis following cerebral infarction affecting left non-dominant side
CPT/HCPCS: 51700; 81001; 87086; 99283

== ENCOUNTER 2021-03-19 11:04 | Inpatient (IN) | payer OTHER ==
[~2021-03-19] VITALS: Ht 185.4 cm; Wt 59.6 kg
[2021-03-19] VITALS (14 sets, daily range): BP systolic 84–113; BP diastolic 64–74
[2021-03-19] MEDS ORDERED: SODIUM CHLORIDE 0.9% 1000ML 1,000 ML IV STA ×2 (11:28)
[2021-03-19 11:39] LABS: BASOPHILS % 0.2 % (0.0-1.0); HEMATOCRIT 30.8 % (38.2-49.6); HEMOGLOBIN 9.4 g/dL (14.0-18.0); LYMPHOCYTES # (AUTO) 0.2 (1.0-3.2); LYMPHOCYTES % 2.5 % (18.0-39.1); MEAN CORPUSCULAR HEMOGLOBIN 29.2 pg (28-32); MEAN CORPUSCULAR HGB CONC 30.5 g/dL (31-35); MEAN CORPUSCULAR VOLUME 95.7 fL (81-99); MONOCYTES # (AUTO) 0.2 (0.2-0.8); MONOCYTES % 2.5 % (4.4-11.3); NEUTROPHILS # (AUTO) 8.1 (2.1-6.9); NEUTROPHILS % 94.2 % (38.7-80.0); PLATELET COUNT 78 x10e3/uL (140-360); RED BLOOD COUNT 3.22 x10e6/uL (4.3-5.7); RED CELL DISTRIBUTION WIDTH 16.5 % (11.7-14.4)
[2021-03-19] MEDS ORDERED: SODIUM CHLORIDE 0.9% 1000ML 2,000 ML ONE (11:39)
[2021-03-19] MEDS ORDERED: Vancomycin IV 1 GM in SODIUM CHLORIDE 0.9% 250ML 250 ML IV ONE (11:45)
[2021-03-19] MEDS ORDERED: PIPERACILLIN/TAZOBACTAM 3.375 GM in SODIUM CHLORIDE 0.9% 50ML 50 ML IV ONE (11:45)
[2021-03-19 11:51] LABS: INR 2.52; PARTIAL THROMBOPLASTIN TIME 48.1 seconds (23.8-35.5); PROTHROMBIN TIME 29.2 seconds (11.9-14.5)
[2021-03-19] MEDS ORDERED: SODIUM CHLORIDE 0.9% 1000ML 1,000 ML IV ONE (12:00)
[2021-03-19] MEDS ORDERED: ACETAMINOPHEN 650 MG SUPP PR ONE (12:00)
[2021-03-19 12:01] LABS: ALBUMIN 1.5 g/dL (3.5-5.0); ALBUMIN/GLOBULIN RATIO 0.4 (0.8-2.0); ANION GAP 18.1 mmol/L (8-16); CALCIUM 7.6 mg/dL (8.4-10.2); CREATININE, SERUM 4.74 mg/dL (0.72-1.25); MAGNESIUM 1.7 MG/DL (1.3-2.1); POTASSIUM 4.1 mmol/L (3.5-5.1)
[2021-03-19 12:06] LABS: BAND NEUTROPHILS % (MANUAL) 5 %; LYMPHOCYTES % (MANUAL) 2 % (19-48); MONOCYTES % (MANUAL) 3 % (3.4-9.0); NEUTROPHILS % (MANUAL) 90 % (40-74)
[2021-03-19 12:07] LABS: CREATINE KINASE MB 0.9 ng/mL (0-5.0); PLATELET ESTIMATE ADEQUATE; PLATELET MORPHOLOGY COMMENT NORMAL; RBC MORPHOLOGY COMMENT NORMAL
[2021-03-19] MEDS ORDERED: DEXTROSE 50% SYRINGE 50 ML IV ONE ×2 (12:15→12:27)
[2021-03-19] MEDS: NOREPINEPHRINE 8 MG/D5W 250 ML 250 ML IV SCH (13:05)
[2021-03-19 13:16] LABS: CLARITY,URINE CLOUDY (CLEAR); COLOR,URINE YELLOW (YELLOW)
[2021-03-19 13:17] LABS: KETONES,URINE NEGATIVE (NEGATIVE); LEUKOCYTE ESTERASE ,URINE SMALL (NEGATIVE); NITRITE,URINE NEGATIVE (NEGATIVE); PROTEIN,URINE DIPSTICK 2+ (NEGATIVE); URINE UROBILINOGEN 0.2 mg/dL (0.2 - 1)
[2021-03-19 13:33] LABS: BACTERIA,URINE MODERATE /HPF; EPITHELIAL CELLS,URINE FEW /LPF; RBC,URINE 21-50 /HPF (0-5); YEAST,URINE RARE
[2021-03-19] MEDS ORDERED: SODIUM CHLORIDE 0.9% 1000ML 1,000 ML ONE ×2 (16:17→17:45)
[2021-03-19] MEDS ORDERED: ONDANSETRON HCL INJ 2MG/ML 2ML 2 MG/ML VIAL IV PRN (17:45)
[2021-03-19] MEDS ORDERED: HYDRALAZINE HCL 20 MG/ML VIAL IV PRN (17:45)
[2021-03-19] MEDS ORDERED: ACETAMINOPHEN 325 MG SUPP PR PRN (17:45)
[2021-03-19] MEDS ORDERED: HEPARIN SOD (PORCINE) 1000 UNIT/ML SDV ONE (17:46)
[2021-03-19] MEDS ORDERED: FUROSEMIDE INJ 10 MG/ML 4 ML VIAL IV ONE (21:30)
[2021-03-20] VITALS (16 sets, daily range): BP systolic 83–113; BP diastolic 55–79
[2021-03-20 01:39] LABS: CREATINE KINASE MB 1.3 ng/mL (0-5.0)
[2021-03-20 07:43] LABS: BASOPHILS % 0.3 % (0.0-1.0); HEMATOCRIT 31.4 % (38.2-49.6); HEMOGLOBIN 9.6 g/dL (14.0-18.0); LYMPHOCYTES # (AUTO) 0.2 (1.0-3.2); LYMPHOCYTES % 2.6 % (18.0-39.1); MEAN CORPUSCULAR HEMOGLOBIN 29.4 pg (28-32); MEAN CORPUSCULAR HGB CONC 30.6 g/dL (31-35); MONOCYTES # (AUTO) 0.1 (0.2-0.8); MONOCYTES % 1.4 % (4.4-11.3); NEUTROPHILS # (AUTO) 8.3 (2.1-6.9); NEUTROPHILS % 95.1 % (38.7-80.0); PLATELET COUNT 65 x10e3/uL (140-360); RED BLOOD COUNT 3.27 x10e6/uL (4.3-5.7); RED CELL DISTRIBUTION WIDTH 16.8 % (11.7-14.4)
[2021-03-20] MEDS: DEXTROSE 50% SYRINGE 50 ML IV PRN ×2 (08:13→19:10)
[2021-03-20 08:24] LABS: CREATINE KINASE MB 1.4 ng/mL (0-5.0)
[2021-03-20 09:00] LABS: ALBUMIN 1.5 g/dL (3.5-5.0); ALBUMIN/GLOBULIN RATIO 0.4 (0.8-2.0); ANION GAP 15.6 mmol/L (8-16); CALCIUM 7.3 mg/dL (8.4-10.2); CHOL/HDL RATIO 5.6 (3.9-4.7); CREATININE, SERUM 3.51 mg/dL (0.72-1.25); POTASSIUM 3.6 mmol/L (3.5-5.1)
[2021-03-20 09:51] LABS: BAND NEUTROPHILS % (MANUAL) 8 %; LYMPHOCYTES % (MANUAL) 2 % (19-48); METAMYELOCYTES % (MANUAL) 2 % (0-0); MONOCYTES % (MANUAL) 4 % (3.4-9.0); NEUTROPHILS % (MANUAL) 83 % (40-74); PLATELET ESTIMATE MODERATELY DECREASED; PLATELET MORPHOLOGY COMMENT NORMAL; RBC MORPHOLOGY COMMENT NORMAL
[2021-03-20] MEDS: INSULIN LISPRO 100 UNIT/1 ML 3ML VIAL SQ SCH ×3 (11:07→21:00)
[2021-03-20] MEDS ORDERED: REMDESIVIR 100MG 200 MG in SODIUM CHLORIDE 0.9% 100 ML IV ONE (12:00)
[2021-03-20] MEDS ORDERED: SODIUM CHLORIDE 0.9% 1000ML 1,000 ML ONE (12:21)
[2021-03-20] MEDS ORDERED: SODIUM CHLORIDE 0.9% 1000ML 2,000 ML IV PRN (12:45)
[2021-03-20] MEDS ORDERED: HEPARIN SOD (PORCINE) 1000 UNIT/ML SDV IV PRN (12:45)
[2021-03-20] MEDS ORDERED: SODIUM CHLORIDE 0.9% 250ML 500 ML IV PRN (12:45)
[2021-03-20] MEDS: NOREPINEPHRINE 8 MG/D5W 250 ML 250 ML IV SCH (13:31)
[2021-03-21] VITALS (27 sets, daily range): BP systolic 87–119; BP diastolic 54–95
[2021-03-21 05:43] LABS: BASOPHILS # (AUTO) 0.1 (0.0-0.1); BASOPHILS % 0.7 % (0.0-1.0); HEMATOCRIT 32.1 % (38.2-49.6); HEMOGLOBIN 9.8 g/dL (14.0-18.0); LYMPHOCYTES # (AUTO) 0.4 (1.0-3.2); LYMPHOCYTES % 4.2 % (18.0-39.1); MEAN CORPUSCULAR HEMOGLOBIN 30.1 pg (28-32); MEAN CORPUSCULAR HGB CONC 30.5 g/dL (31-35); MEAN CORPUSCULAR VOLUME 98.5 fL (81-99); MONOCYTES # (AUTO) 0.4 (0.2-0.8); MONOCYTES % 4.4 % (4.4-11.3); NEUTROPHILS # (AUTO) 7.7 (2.1-6.9); NEUTROPHILS % 90.2 % (38.7-80.0); PLATELET COUNT 51 x10e3/uL (140-360); RED BLOOD COUNT 3.26 x10e6/uL (4.3-5.7); RED CELL DISTRIBUTION WIDTH 16.7 % (11.7-14.4)
[2021-03-21] MEDS: INSULIN LISPRO 100 UNIT/1 ML 3ML VIAL SQ SCH ×4 (07:30→21:00)
[2021-03-21 08:36] LABS: ALBUMIN 1.4 g/dL (3.5-5.0); ALBUMIN/GLOBULIN RATIO 0.4 (0.8-2.0); ANION GAP 14.5 mmol/L (8-16); CALCIUM 7.6 mg/dL (8.4-10.2); CREATININE, SERUM 2.58 mg/dL (0.72-1.25); POTASSIUM 3.5 mmol/L (3.5-5.1)
[2021-03-21 08:59] LABS: BAND NEUTROPHILS % (MANUAL) 1 %; LYMPHOCYTES % (MANUAL) 1 % (19-48); MONOCYTES % (MANUAL) 1 % (3.4-9.0); NEUTROPHILS % (MANUAL) 97 % (40-74); PLATELET MORPHOLOGY COMMENT NORMAL; RBC MORPHOLOGY COMMENT NORMAL
[2021-03-21 09:00] LABS: PLATELET ESTIMATE MARKEDLY DECREASED
[2021-03-21] MEDS: MEROPENEM 500 MG in SODIUM CHLORIDE 0.9% 50ML 50 ML IV SCH (10:30)
[2021-03-21] MEDS: REMDESIVIR 100MG 100 MG in SODIUM CHLORIDE 0.9% 100 ML IV SCH (13:42)
[2021-03-21] MEDS: FLUCONAZOLE 200 MG/100 ML 100 ML IV SCH (13:48)
[2021-03-21 13:49] LABS: INR 1.48; PROTHROMBIN TIME 19.1 seconds (11.9-14.5)
[2021-03-21 13:50] LABS: PARTIAL THROMBOPLASTIN TIME 42.5 seconds (23.8-35.5)
[2021-03-21] MEDS: NOREPINEPHRINE 8 MG/D5W 250 ML 250 ML IV SCH (14:59)
[2021-03-22] VITALS (26 sets, daily range): BP systolic 82–127; BP diastolic 51–69
[2021-03-22] MEDS: INSULIN LISPRO 100 UNIT/1 ML 3ML VIAL SQ SCH ×4 (07:30→20:32)
[2021-03-22] MEDS: MEROPENEM 500 MG in SODIUM CHLORIDE 0.9% 50ML 50 ML IV SCH (09:04)
[2021-03-22] MEDS: REMDESIVIR 100MG 100 MG in SODIUM CHLORIDE 0.9% 100 ML IV SCH (12:38)
[2021-03-22] MEDS: FLUCONAZOLE 200 MG/100 ML 100 ML IV SCH (12:38)
[2021-03-22] MEDS: NOREPINEPHRINE 8 MG/D5W 250 ML 250 ML IV SCH (13:00)
[2021-03-22 13:59] LABS: HEMATOCRIT 25.8 % (38.2-49.6); HEMOGLOBIN 8.1 g/dL (14.0-18.0); LYMPHOCYTES # (AUTO) 0.2 (1.0-3.2); LYMPHOCYTES % 7.2 % (18.0-39.1); MEAN CORPUSCULAR HEMOGLOBIN 29.3 pg (28-32); MEAN CORPUSCULAR HGB CONC 31.4 g/dL (31-35); MEAN CORPUSCULAR VOLUME 93.5 fL (81-99); MONOCYTES # (AUTO) 0.1 (0.2-0.8); MONOCYTES % 5.1 % (4.4-11.3); NEUTROPHILS # (AUTO) 2.4 (2.1-6.9); RED BLOOD COUNT 2.76 x10e6/uL (4.3-5.7); RED CELL DISTRIBUTION WIDTH 16.4 % (11.7-14.4)
[2021-03-22 14:09] LABS: PLATELET COUNT 30 x10e3/uL (140-360)
[2021-03-22 14:18] LABS: ALBUMIN 1.2 g/dL (3.5-5.0); ALBUMIN/GLOBULIN RATIO 0.4 (0.8-2.0); ANION GAP 15.4 mmol/L (8-16); CALCIUM 7.3 mg/dL (8.4-10.2); CREATININE, SERUM 2.81 mg/dL (0.72-1.25); POTASSIUM 3.4 mmol/L (3.5-5.1)
[2021-03-22] MEDS ORDERED: POTASSIUM CHLORIDE 20MEQ/100ML 100 ML IV ONE (15:30)
[2021-03-22] MEDS: DEXTROSE 50% SYRINGE 50 ML IV PRN (18:09)
[2021-03-23] VITALS (18 sets, daily range): BP systolic 85–108; BP diastolic 55–84
[2021-03-23 06:57] LABS: ALBUMIN 1.5 g/dL (3.5-5.0); ALBUMIN/GLOBULIN RATIO 0.4 (0.8-2.0); ANION GAP 13.7 mmol/L (8-16); CALCIUM 8.1 mg/dL (8.4-10.2); CREATININE, SERUM 3.12 mg/dL (0.72-1.25); POTASSIUM 3.7 mmol/L (3.5-5.1)
[2021-03-23] MEDS: INSULIN LISPRO 100 UNIT/1 ML 3ML VIAL SQ SCH ×4 (07:30→21:00)
[2021-03-23] MEDS ORDERED: ALBUMIN 25% 12.5GM 0.25 GM/ML BTL IV PRN (08:30)
[2021-03-23] MEDS: BALSAM PERU/CASTOR OIL 60 GM OINT...G. TP SCH (08:41)
[2021-03-23] MEDS: MEROPENEM 500 MG in SODIUM CHLORIDE 0.9% 50ML 50 ML IV SCH (08:41)
[2021-03-23 08:57] LABS: BASOPHILS % 0.2 % (0.0-1.0); EOSINOPHILS % 0.2 % (0.0-6.0); HEMATOCRIT 30.6 % (38.2-49.6); HEMOGLOBIN 9.3 g/dL (14.0-18.0); LYMPHOCYTES # (AUTO) 0.4 (1.0-3.2); LYMPHOCYTES % 8.9 % (18.0-39.1); MEAN CORPUSCULAR HEMOGLOBIN 29.2 pg (28-32); MEAN CORPUSCULAR HGB CONC 30.4 g/dL (31-35); MEAN CORPUSCULAR VOLUME 96.2 fL (81-99); MONOCYTES # (AUTO) 0.2 (0.2-0.8); MONOCYTES % 4.6 % (4.4-11.3); NEUTROPHILS # (AUTO) 3.5 (2.1-6.9); NEUTROPHILS % 85.4 % (38.7-80.0); RED BLOOD COUNT 3.18 x10e6/uL (4.3-5.7); RED CELL DISTRIBUTION WIDTH 16.6 % (11.7-14.4)
[2021-03-23 09:02] LABS: PLATELET COUNT 34 x10e3/uL (140-360)
[2021-03-23 09:58] LABS: IRON 47 ug/dL (65-175); TRANSFERRIN < 70 mg/dL (174-364)
[2021-03-23 10:20] LABS: FERRITIN 1069.64 ng/mL (21.81-274.66)
[2021-03-23] MEDS: FLUCONAZOLE 200 MG/100 ML 100 ML IV SCH (11:38)
[2021-03-23] MEDS: REMDESIVIR 100MG 100 MG in SODIUM CHLORIDE 0.9% 100 ML IV SCH (11:38)
[2021-03-23] MEDS: EPOETIN ALFA-EPBX 10,000 UNIT/ML VIAL SC SCH (16:56)
[2021-03-23] MEDS ORDERED: DEXTROSE 5%/0.45% SOD CHL 1,000 ML IV ONE (20:30)
[2021-03-24] VITALS (7 sets, daily range): BP systolic 98–119; BP diastolic 65–82
[2021-03-24] MEDS ORDERED: DEXTROSE 5%/0.45% SOD CHL 1,000 ML IV ONE (06:00)
[2021-03-24 06:42] LABS: ANION GAP 12.1 mmol/L (8-16); CALCIUM 7.8 mg/dL (8.4-10.2); CREATININE, SERUM 2.02 mg/dL (0.72-1.25); MAGNESIUM 1.7 MG/DL (1.3-2.1); PHOSPHORUS 2.3 MG/DL (2.3-4.7); POTASSIUM 4.1 mmol/L (3.5-5.1)
[2021-03-24 06:57] LABS: EOSINOPHILS % 0.3 % (0.0-6.0); HEMATOCRIT 30.6 % (38.2-49.6); LYMPHOCYTES # (AUTO) 0.3 (1.0-3.2); LYMPHOCYTES % 7.9 % (18.0-39.1); MEAN CORPUSCULAR HEMOGLOBIN 29.4 pg (28-32); MEAN CORPUSCULAR HGB CONC 29.4 g/dL (31-35); MONOCYTES # (AUTO) 0.3 (0.2-0.8); MONOCYTES % 8.8 % (4.4-11.3); NEUTROPHILS # (AUTO) 2.7 (2.1-6.9); NEUTROPHILS % 82.1 % (38.7-80.0); RED BLOOD COUNT 3.06 x10e6/uL (4.3-5.7)
[2021-03-24 07:04] LABS: PLATELET COUNT 31 x10e3/uL (140-360)
[2021-03-24] MEDS: INSULIN LISPRO 100 UNIT/1 ML 3ML VIAL SQ SCH ×4 (07:30→21:00)
[2021-03-24] MEDS: BALSAM PERU/CASTOR OIL 60 GM OINT...G. TP SCH (09:00)
[2021-03-24] MEDS: MEROPENEM 500 MG in SODIUM CHLORIDE 0.9% 50ML 50 ML IV SCH (09:10)
[2021-03-24] MEDS: REMDESIVIR 100MG 100 MG in SODIUM CHLORIDE 0.9% 100 ML IV SCH (11:21)
[2021-03-24 11:39] LABS: PLATELET ESTIMATE MARKEDLY DECREASED; PLATELET MORPHOLOGY COMMENT NORMAL; RBC MORPHOLOGY COMMENT NORMAL
[2021-03-24] MEDS ORDERED: BUMETANIDE INJ 0.25MG/ML 4ML VIAL IV ONE (17:25)
[2021-03-24 23:41] LABS: ABG PCO2 47 mmHg (35-45); ABG PH 7.38 (7.35-7.45)
[2021-03-24 23:42] LABS: ABG HCO3 28 mmol/L (22-26); ABG PO2 185 mmHg (80-105); ABG TCO2 30
[2021-03-25] VITALS: BP 117/67
[2021-03-25 04:00] VITALS: BP 111/73
[2021-03-25 05:59] LABS: EOSINOPHILS % 0.6 % (0.0-6.0); HEMATOCRIT 25.2 % (38.2-49.6); HEMOGLOBIN 8.1 g/dL (14.0-18.0); LYMPHOCYTES # (AUTO) 0.3 (1.0-3.2); LYMPHOCYTES % 8.5 % (18.0-39.1); MEAN CORPUSCULAR HEMOGLOBIN 29.1 pg (28-32); MEAN CORPUSCULAR HGB CONC 32.1 g/dL (31-35); MEAN CORPUSCULAR VOLUME 90.6 fL (81-99); MONOCYTES # (AUTO) 0.3 (0.2-0.8); MONOCYTES % 9.1 % (4.4-11.3); NEUTROPHILS # (AUTO) 2.7 (2.1-6.9); NEUTROPHILS % 81.2 % (38.7-80.0); RED BLOOD COUNT 2.78 x10e6/uL (4.3-5.7); RED CELL DISTRIBUTION WIDTH 16.7 % (11.7-14.4)
[2021-03-25 06:03] LABS: PLATELET COUNT 47 x10e3/uL (140-360)
[2021-03-25 06:23] LABS: ALBUMIN 1.6 g/dL (3.5-5.0); ALBUMIN/GLOBULIN RATIO 0.4 (0.8-2.0); ANION GAP 11.7 mmol/L (8-16); CALCIUM 7.7 mg/dL (8.4-10.2); CREATININE, SERUM 2.35 mg/dL (0.72-1.25); POTASSIUM 3.7 mmol/L (3.5-5.1)
[2021-03-25] MEDS: INSULIN LISPRO 100 UNIT/1 ML 3ML VIAL SQ SCH ×4 (07:30→20:11)
[2021-03-25 07:58] LABS: PLATELET ESTIMATE MODERATELY DECREASED; PLATELET MORPHOLOGY COMMENT NORMAL; RBC MORPHOLOGY COMMENT NORMAL
[2021-03-25 09:00] VITALS: BP 111/73
[2021-03-25] MEDS: MEROPENEM 500 MG in SODIUM CHLORIDE 0.9% 50ML 50 ML IV SCH (13:00)
[2021-03-25] MEDS: REMDESIVIR 100MG 100 MG in SODIUM CHLORIDE 0.9% 100 ML IV SCH (14:08)
[2021-03-25] MEDS: DEXAMETHASONE 4 MG TAB PO SCH (14:50)
[2021-03-25] MEDS: BALSAM PERU/CASTOR OIL 60 GM OINT...G. TP SCH (14:50)
[2021-03-25] MEDS: DEXTROSE 50% SYRINGE 50 ML IV PRN (15:53)
[2021-03-25] MEDS: EPOETIN ALFA-EPBX 10,000 UNIT/ML VIAL SC SCH (16:34)
[2021-03-25 20:00] VITALS: BP 93/67
[2021-03-25 22:00] VITALS: BP 93/67
[2021-03-26] VITALS (7 sets, daily range): BP systolic 101–118; BP diastolic 65–80
[2021-03-26 05:50] LABS: HEMATOCRIT 28.4 % (38.2-49.6); HEMOGLOBIN 8.8 g/dL (14.0-18.0); LYMPHOCYTES # (AUTO) 0.3 (1.0-3.2); MEAN CORPUSCULAR HEMOGLOBIN 29.4 pg (28-32); MONOCYTES # (AUTO) 0.3 (0.2-0.8); MONOCYTES % 7.8 % (4.4-11.3); NEUTROPHILS % 84.9 % (38.7-80.0); RED BLOOD COUNT 2.99 x10e6/uL (4.3-5.7); RED CELL DISTRIBUTION WIDTH 16.8 % (11.7-14.4)
[2021-03-26 06:01] LABS: PLATELET COUNT 33 x10e3/uL (140-360)
[2021-03-26 06:08] LABS: ALBUMIN/GLOBULIN RATIO 0.5 (0.8-2.0); ALKALINE PHOSPHATASE 142 IU/L (40-150); ANION GAP 13.1 mmol/L (8-16); BLOOD UREA NITROGEN 18 mg/dL (7-26); BUN/CREATININE RATIO 10 (6-25); CALCIUM 8.2 mg/dL (8.4-10.2); CARBON DIOXIDE 21 mmol/L (22-29); CHLORIDE 111 mmol/L (98-107); CREATININE, SERUM 1.84 mg/dL (0.72-1.25); EST GLOMERULAR FILTRATION RATE 36 ML/MIN (60-); GLUCOSE 100 mg/dL (74-118); POTASSIUM 4.1 mmol/L (3.5-5.1); SODIUM 141 mmol/L (136-145)
[2021-03-26 06:28] LABS: ALANINE AMINOTRANSFERASE < 6 IU/L (0-55)
[2021-03-26] MEDS: INSULIN LISPRO 100 UNIT/1 ML 3ML VIAL SQ SCH ×5 (07:30→21:00)
[2021-03-26 08:01] LABS: ANISOCYTOSIS SLIGHT; HYPOCHROMASIA SLIGHT; LYMPHOCYTES % (MANUAL) 2 % (19-48); MONOCYTES % (MANUAL) 5 % (3.4-9.0); NEUTROPHILS % (MANUAL) 93 % (40-74); PLATELET ESTIMATE MARKEDLY DECREASED; PLATELET MORPHOLOGY COMMENT NORMAL; RBC MORPHOLOGY COMMENT NORMAL
[2021-03-26] MEDS: BALSAM PERU/CASTOR OIL 60 GM OINT...G. TP SCH (11:37)
[2021-03-26] MEDS: REMDESIVIR 100MG 100 MG in SODIUM CHLORIDE 0.9% 100 ML IV SCH (15:44)
[2021-03-26] MEDS: DEXAMETHASONE 4 MG TAB PO SCH (15:44)
[2021-03-26 17:00] LABS: INR 1.77; PARTIAL THROMBOPLASTIN TIME 45.1 seconds (23.8-35.5)
[2021-03-27] VITALS (8 sets, daily range): BP systolic 76–106; BP diastolic 52–73
[2021-03-27 06:35] LABS: BASOPHILS % 0.4 % (0.0-1.0); HEMATOCRIT 34.1 % (38.2-49.6); LYMPHOCYTES # (AUTO) 0.2 (1.0-3.2); LYMPHOCYTES % 6.3 % (18.0-39.1); MEAN CORPUSCULAR HEMOGLOBIN 29.6 pg (28-32); MEAN CORPUSCULAR HGB CONC 32.3 g/dL (31-35); MEAN CORPUSCULAR VOLUME 91.7 fL (81-99); MONOCYTES # (AUTO) 0.1 (0.2-0.8); MONOCYTES % 2.4 % (4.4-11.3); NEUTROPHILS # (AUTO) 2.3 (2.1-6.9); NEUTROPHILS % 90.5 % (38.7-80.0); RED BLOOD COUNT 3.72 x10e6/uL (4.3-5.7)
[2021-03-27 06:50] LABS: PLATELET COUNT 42 x10e3/uL (140-360)
[2021-03-27 06:54] LABS: ALBUMIN 1.9 g/dL (3.5-5.0); ALBUMIN/GLOBULIN RATIO 0.5 (0.8-2.0); ALKALINE PHOSPHATASE 150 IU/L (40-150); ANION GAP 14.3 mmol/L (8-16); BLOOD UREA NITROGEN 28 mg/dL (7-26); BUN/CREATININE RATIO 11 (6-25); CALCIUM 8.2 mg/dL (8.4-10.2); CARBON DIOXIDE 21 mmol/L (22-29); CHLORIDE 109 mmol/L (98-107); CREATININE, SERUM 2.45 mg/dL (0.72-1.25); EST GLOMERULAR FILTRATION RATE 26 ML/MIN (60-); GLUCOSE 141 mg/dL (74-118); POTASSIUM 4.3 mmol/L (3.5-5.1); SODIUM 140 mmol/L (136-145)
[2021-03-27 07:03] LABS: ALANINE AMINOTRANSFERASE < 6 IU/L (0-55)
[2021-03-27] MEDS: INSULIN LISPRO 100 UNIT/1 ML 3ML VIAL SQ SCH ×4 (08:30→20:25)
[2021-03-27] MEDS: BALSAM PERU/CASTOR OIL 60 GM OINT...G. TP SCH (08:33)
[2021-03-27 12:08] LABS: INR 1.87
[2021-03-27 12:09] LABS: PARTIAL THROMBOPLASTIN TIME 45.8 seconds (23.8-35.5)
[2021-03-27] MEDS: DEXAMETHASONE 4 MG TAB PO SCH (16:08)
[2021-03-27] MEDS: EPOETIN ALFA-EPBX 10,000 UNIT/ML VIAL SC SCH (16:08)
[2021-03-28] VITALS (8 sets, daily range): BP systolic 91–102; BP diastolic 60–71
[2021-03-28 06:25] LABS: HEMATOCRIT 31.5 % (38.2-49.6); HEMOGLOBIN 9.8 g/dL (14.0-18.0); LYMPHOCYTES # (AUTO) 0.2 (1.0-3.2); LYMPHOCYTES % 4.9 % (18.0-39.1); MEAN CORPUSCULAR HEMOGLOBIN 29.1 pg (28-32); MEAN CORPUSCULAR HGB CONC 31.1 g/dL (31-35); MEAN CORPUSCULAR VOLUME 93.5 fL (81-99); MONOCYTES # (AUTO) 0.2 (0.2-0.8); MONOCYTES % 4.1 % (4.4-11.3); NEUTROPHILS # (AUTO) 3.5 (2.1-6.9); NEUTROPHILS % 90.7 % (38.7-80.0); PLATELET COUNT 53 x10e3/uL (140-360); RED BLOOD COUNT 3.37 x10e6/uL (4.3-5.7); RED CELL DISTRIBUTION WIDTH 17.2 % (11.7-14.4)
[2021-03-28 06:57] LABS: ALBUMIN/GLOBULIN RATIO 0.6 (0.8-2.0); ALKALINE PHOSPHATASE 118 IU/L (40-150); BLOOD UREA NITROGEN 27 mg/dL (7-26); BUN/CREATININE RATIO 13 (6-25); CARBON DIOXIDE 21 mmol/L (22-29); CHLORIDE 109 mmol/L (98-107); CREATININE, SERUM 2.01 mg/dL (0.72-1.25); EST GLOMERULAR FILTRATION RATE 33 ML/MIN (60-); GLUCOSE 122 mg/dL (74-118); SODIUM 140 mmol/L (136-145)
[2021-03-28] MEDS: INSULIN LISPRO 100 UNIT/1 ML 3ML VIAL SQ SCH ×4 (07:21→21:00)
[2021-03-28 07:28] LABS: ALANINE AMINOTRANSFERASE < 6 IU/L (0-55)
[2021-03-28] MEDS: BALSAM PERU/CASTOR OIL 60 GM OINT...G. TP SCH (08:04)
[2021-03-28] MEDS: DEXAMETHASONE 4 MG TAB PO SCH (12:22)
[2021-03-29] VITALS (8 sets, daily range): BP systolic 95–107; BP diastolic 66–90
[2021-03-29 05:42] LABS: BASOPHILS % 0.2 % (0.0-1.0); HEMOGLOBIN 9.9 g/dL (14.0-18.0); LYMPHOCYTES # (AUTO) 0.2 (1.0-3.2); LYMPHOCYTES % 3.6 % (18.0-39.1); MEAN CORPUSCULAR HEMOGLOBIN 29.2 pg (28-32); MEAN CORPUSCULAR HGB CONC 31.9 g/dL (31-35); MEAN CORPUSCULAR VOLUME 91.4 fL (81-99); MONOCYTES # (AUTO) 0.3 (0.2-0.8); MONOCYTES % 5.6 % (4.4-11.3); NEUTROPHILS # (AUTO) 5.5 (2.1-6.9); NEUTROPHILS % 90.3 % (38.7-80.0); PLATELET COUNT 50 x10e3/uL (140-360); RED BLOOD COUNT 3.39 x10e6/uL (4.3-5.7); RED CELL DISTRIBUTION WIDTH 17.2 % (11.7-14.4)
[2021-03-29 06:18] LABS: ANION GAP 13.1 mmol/L (8-16); CREATININE, SERUM 2.65 mg/dL (0.72-1.25); POTASSIUM 4.1 mmol/L (3.5-5.1)
[2021-03-29] MEDS: INSULIN LISPRO 100 UNIT/1 ML 3ML VIAL SQ SCH ×4 (07:30→21:00)
[2021-03-29] MEDS: BALSAM PERU/CASTOR OIL 60 GM OINT...G. TP SCH (09:09)
[2021-03-29] MEDS: DEXAMETHASONE 4 MG TAB PO SCH (13:00)
[2021-03-29] MEDS ORDERED: SODIUM CHLORIDE 0.9% 250ML 250 ML ONE (15:27)
[2021-03-30] VITALS (8 sets, daily range): BP systolic 101–112; BP diastolic 52–72
[2021-03-30 05:46] LABS: HEMATOCRIT 26.5 % (38.2-49.6); HEMOGLOBIN 8.5 g/dL (14.0-18.0); LYMPHOCYTES # (AUTO) 0.3 (1.0-3.2); LYMPHOCYTES % 5.4 % (18.0-39.1); MEAN CORPUSCULAR HEMOGLOBIN 29.3 pg (28-32); MEAN CORPUSCULAR HGB CONC 32.1 g/dL (31-35); MEAN CORPUSCULAR VOLUME 91.4 fL (81-99); MONOCYTES # (AUTO) 0.5 (0.2-0.8); MONOCYTES % 8.3 % (4.4-11.3); NEUTROPHILS # (AUTO) 5.4 (2.1-6.9); NEUTROPHILS % 85.8 % (38.7-80.0); PLATELET COUNT 92 x10e3/uL (140-360); RED CELL DISTRIBUTION WIDTH 17.6 % (11.7-14.4)
[2021-03-30 06:57] LABS: INR 1.46; PROTHROMBIN TIME 18.8 seconds (11.9-14.5)
[2021-03-30] MEDS: INSULIN LISPRO 100 UNIT/1 ML 3ML VIAL SQ SCH ×4 (07:30→21:00)
[2021-03-30] MEDS: BALSAM PERU/CASTOR OIL 60 GM OINT...G. TP SCH (09:51)
[2021-03-30] MEDS ORDERED: HEPARIN SOD (PORCINE) 1000 UNIT/ML SDV ONE (12:03)
[2021-03-30] MEDS ORDERED: MIDAZOLAM HCL 2 MG/2 ML VIAL ONE (12:03)
[2021-03-30] MEDS ORDERED: FENTANYL CITRATE/PF 100MCG/2 ML INJ ONE (12:03)
[2021-03-30 12:10] LABS: ANION GAP 8.8 mmol/L (8-16); CALCIUM 8.1 mg/dL (8.4-10.2); CREATININE, SERUM 3.1 mg/dL (0.72-1.25); MAGNESIUM 1.9 MG/DL (1.3-2.1); PHOSPHORUS 3.4 MG/DL (2.3-4.7); POTASSIUM 3.8 mmol/L (3.5-5.1)
[2021-03-30] MEDS ORDERED: SODIUM CHLORIDE 0.9% 250ML 250 ML ONE (12:19)
[2021-03-30] MEDS ORDERED: LIDOCAINE HCL 1% LOCAL INJ 20 ML VIAL ONE (12:19)
[2021-03-30] MEDS: DEXAMETHASONE 4 MG TAB PO SCH (14:06)
[2021-03-31] VITALS (8 sets, daily range): BP systolic 106–121; BP diastolic 62–81
[2021-03-31 05:29] LABS: HEMATOCRIT 31.2 % (38.2-49.6); HEMOGLOBIN 9.6 g/dL (14.0-18.0); LYMPHOCYTES # (AUTO) 0.2 (1.0-3.2); LYMPHOCYTES % 3.7 % (18.0-39.1); MEAN CORPUSCULAR HGB CONC 30.8 g/dL (31-35); MEAN CORPUSCULAR VOLUME 94.3 fL (81-99); MONOCYTES # (AUTO) 0.2 (0.2-0.8); MONOCYTES % 3.9 % (4.4-11.3); NEUTROPHILS # (AUTO) 4.2 (2.1-6.9); NEUTROPHILS % 92.2 % (38.7-80.0); RED BLOOD COUNT 3.31 x10e6/uL (4.3-5.7); RED CELL DISTRIBUTION WIDTH 17.7 % (11.7-14.4)
[2021-03-31 05:43] LABS: CREATININE, SERUM 1.89 mg/dL (0.72-1.25); MAGNESIUM 1.8 MG/DL (1.3-2.1); PHOSPHORUS 3.1 MG/DL (2.3-4.7)
[2021-03-31 07:02] LABS: PLATELET COUNT 30 x10e3/uL (140-360)
[2021-03-31] MEDS: INSULIN LISPRO 100 UNIT/1 ML 3ML VIAL SQ SCH ×4 (07:30→22:00)
[2021-03-31] MEDS: BALSAM PERU/CASTOR OIL 60 GM OINT...G. TP SCH (09:00)
[2021-03-31 09:09] LABS: ANISOCYTOSIS SLIGHT; LYMPHOCYTES % (MANUAL) 2 % (19-48); MONOCYTES % (MANUAL) 3 % (3.4-9.0); NEUTROPHILS % (MANUAL) 95 % (40-74); PLATELET ESTIMATE MARKEDLY DECREASED; PLATELET MORPHOLOGY COMMENT NORMAL
[2021-03-31 09:10] LABS: TARGET CELLS FEW
[2021-03-31 09:11] LABS: POIKILOCYTOSIS SLIGHT; RBC MORPHOLOGY COMMENT ABNORMAL
[2021-03-31] MEDS: DEXAMETHASONE 4 MG TAB PO SCH (13:09)
[2021-04-01] VITALS (7 sets, daily range): BP systolic 72–113; BP diastolic 49–72
[2021-04-01] MEDS: INSULIN LISPRO 100 UNIT/1 ML 3ML VIAL SQ SCH ×4 (07:30→21:00)
[2021-04-01 08:08] LABS: BASOPHILS % 0.1 % (0.0-1.0); HEMATOCRIT 30.7 % (38.2-49.6); HEMOGLOBIN 9.7 g/dL (14.0-18.0); LYMPHOCYTES # (AUTO) 0.3 (1.0-3.2); LYMPHOCYTES % 2.8 % (18.0-39.1); MEAN CORPUSCULAR HEMOGLOBIN 29.4 pg (28-32); MEAN CORPUSCULAR HGB CONC 31.6 g/dL (31-35); MONOCYTES # (AUTO) 0.5 (0.2-0.8); MONOCYTES % 5.4 % (4.4-11.3); NEUTROPHILS # (AUTO) 8.8 (2.1-6.9); NEUTROPHILS % 91.4 % (38.7-80.0); RED CELL DISTRIBUTION WIDTH 17.6 % (11.7-14.4)
[2021-04-01 08:16] LABS: PLATELET COUNT 40 x10e3/uL (140-360)
[2021-04-01] MEDS: BALSAM PERU/CASTOR OIL 60 GM OINT...G. TP SCH (08:18)
[2021-04-01 08:43] LABS: ALBUMIN 2.3 g/dL (3.5-5.0); ALBUMIN/GLOBULIN RATIO 0.6 (0.8-2.0); ALKALINE PHOSPHATASE 132 IU/L (40-150); ANION GAP 9.9 mmol/L (8-16); BLOOD UREA NITROGEN 31 mg/dL (7-26); BUN/CREATININE RATIO 13 (6-25); CALCIUM 7.9 mg/dL (8.4-10.2); CARBON DIOXIDE 28 mmol/L (22-29); CHLORIDE 107 mmol/L (98-107); CREATININE, SERUM 2.37 mg/dL (0.72-1.25); EST GLOMERULAR FILTRATION RATE 27 ML/MIN (60-); GLUCOSE 76 mg/dL (74-118); POTASSIUM 3.9 mmol/L (3.5-5.1); SODIUM 141 mmol/L (136-145)
[2021-04-01 08:52] LABS: ALANINE AMINOTRANSFERASE < 6 IU/L (0-55)
[2021-04-01] MEDS: FUROSEMIDE INJ 10 MG/ML 4 ML VIAL IV SCH ×2 (11:16→21:00)
[2021-04-01 11:50] LABS: PLATELET ESTIMATE MODERATELY DECREASED; PLATELET MORPHOLOGY COMMENT NORMAL
[2021-04-01 11:51] LABS: RBC MORPHOLOGY COMMENT NORMAL
[2021-04-01] MEDS ORDERED: FUROSEMIDE INJ 10 MG/ML 4 ML VIAL IV ONE (12:00)
[2021-04-01] MEDS: ALBUTEROL SULFATE HFA 8GM INHALATION AEROSOL INH SCH ×4 (12:17→22:41)
[2021-04-01 12:53] LABS: ABG HCO3 27 mmol/L (22-26); ABG PCO2 47 mmHg (35-45); ABG PH 7.37 (7.35-7.45); ABG PO2 71 mmHg (80-105); ABG TCO2 28
[2021-04-01] MEDS: DEXTROSE 50% SYRINGE 50 ML IV PRN (16:40)
[2021-04-01] MEDS ORDERED: ALBUMIN 25% 25GM 100ML 0.25 GM/ML BTL IV ONE (20:30)
[2021-04-01] MEDS ORDERED: NOREPINEPHRINE 8 MG/D5W 250 ML 250 ML ONE (20:59)
[2021-04-01] MEDS ORDERED: FUROSEMIDE INJ 10 MG/ML 4 ML VIAL IV SCH (21:00)
[2021-04-01] MEDS ORDERED: SODIUM CHLORIDE 0.9% 1000ML 1,000 ML ONE (21:13)
[2021-04-01 21:50] LABS: HEMATOCRIT 27.2 % (38.2-49.6); HEMOGLOBIN 8.3 g/dL (14.0-18.0); LYMPHOCYTES # (AUTO) 0.1 (1.0-3.2); LYMPHOCYTES % 2.2 % (18.0-39.1); MEAN CORPUSCULAR HEMOGLOBIN 29.4 pg (28-32); MEAN CORPUSCULAR HGB CONC 30.5 g/dL (31-35); MEAN CORPUSCULAR VOLUME 96.5 fL (81-99); MONOCYTES # (AUTO) 0.2 (0.2-0.8); NEUTROPHILS # (AUTO) 4.7 (2.1-6.9); NEUTROPHILS % 94.4 % (38.7-80.0); RED BLOOD COUNT 2.82 x10e6/uL (4.3-5.7); RED CELL DISTRIBUTION WIDTH 17.8 % (11.7-14.4)
[2021-04-01 21:51] LABS: PLATELET COUNT 22 x10e3/uL (140-360)
[2021-04-01] MEDS: MEROPENEM 500 MG in SODIUM CHLORIDE 0.9% 50ML 50 ML IV SCH (22:30)
[2021-04-01] MEDS ORDERED: Vancomycin IV 1 GM in SODIUM CHLORIDE 0.9% 250ML 250 ML IV ONE (23:00)
[2021-04-01] MEDS ORDERED: NOREPINEPHRINE 8 MG/D5W 250 ML 250 ML IV SCH (23:15)
[2021-04-01] MEDS ORDERED: SODIUM CHLORIDE 0.9% 500ML 500 ML IV ONE (23:15)
[2021-04-02] VITALS (20 sets, daily range): BP systolic 85–121; BP diastolic 48–100
[2021-04-02] MEDS: ALBUTEROL SULFATE HFA 8GM INHALATION AEROSOL INH SCH (03:00)
[2021-04-02] MEDS: INSULIN LISPRO 100 UNIT/1 ML 3ML VIAL SQ SCH (07:30)
[2021-04-02] MEDS: DEXTROSE 50% SYRINGE 50 ML IV PRN (07:37)
[2021-04-02] MEDS: MEROPENEM 500 MG in SODIUM CHLORIDE 0.9% 50ML 50 ML IV SCH (07:56)
[2021-04-02 09:49] LABS: CLARITY,URINE CLOUDY (CLEAR); COLOR,URINE YELLOW (YELLOW)
[2021-04-02 09:50] LABS: KETONES,URINE TRACE (NEGATIVE); LEUKOCYTE ESTERASE ,URINE SMALL (NEGATIVE); NITRITE,URINE NEGATIVE (NEGATIVE); PROTEIN,URINE DIPSTICK 2+ (NEGATIVE); URINE UROBILINOGEN 0.2 mg/dL (0.2 - 1)
[2021-04-02 09:59] LABS: ANION GAP 10.7 mmol/L (8-16); CALCIUM 7.8 mg/dL (8.4-10.2); CREATININE, SERUM 2.05 mg/dL (0.72-1.25); POTASSIUM 3.7 mmol/L (3.5-5.1)
[2021-04-02 10:01] LABS: BACTERIA,URINE MODERATE /HPF; EPITHELIAL CELLS,URINE FEW /LPF; RBC,URINE 21-50 /HPF (0-5); WBC,URINE (MAN) >50 /HPF (0-5)
[2021-04-02 10:02] LABS: YEAST,URINE MODERATE
[2021-04-02] MEDS ORDERED: ROCURONIUM BROMIDE 1 ML IV ONE (10:19)
[2021-04-02] MEDS ORDERED: EPINEPHRINE HCL SYRINGE ONE (12:53)
[2021-04-02] MEDS ORDERED: MIDAZOLAM HCL 2 MG/2 ML VIAL ONE (12:57)
[2021-04-02] MEDS ORDERED: ETOMIDATE 2 MG/ML 10 ML INJ IV ONE (12:57)
[2021-04-03] MEDS ORDERED: EPINEPHRINE HCL SYRINGE ONE (12:06)
[2021-04-03] MEDS ORDERED: AMIODARONE HCL 150 MG/100 ML BAG IV ONE (12:06)
[2021-04-03] MEDS ORDERED: AMIODARONE 900MG 900 MG/500 ML BAG IV ONE (12:06)
[2021-04-03] MEDS ORDERED: SODIUM CHLORIDE FLUSH 10 ML SYR ONE (12:06)
[2021-04-03] MEDS ORDERED: AMIODARONE HCL INJ 150MG/3ML ONE (12:06)
== END 2021-04-02 17:39 | disposition expired | DRG 871 ==
LOC: ER 11:18 → ERHOLD 14:05 → ICU 03-20 11:42 → MED/SURG2 03-23 13:35 → IMCU 03-24 15:00
PROVIDERS: ADMIT Internal Medicine; ATTEND Internal Medicine
PROC: 02HV33Z Insertion of Infusion Device into Superior Vena Cava, Percutaneous Approach (ICD-10-PCS; principal; 2021-03-19)
PROC: 3E043XZ Introduction of Vasopressor into Central Vein, Percutaneous Approach (ICD-10-PCS; 2021-03-19)
PROC: 30233L1 Transfusion of Nonautologous Fresh Plasma into Peripheral Vein, Percutaneous Approach (ICD-10-PCS; 2021-03-19)
PROC: 30233K1 Transfusion of Nonautologous Frozen Plasma into Peripheral Vein, Percutaneous Approach (ICD-10-PCS; 2021-03-19)
PROC: 5A1D70Z Performance of Urinary Filtration, Intermittent, Less than 6 Hours Per Day (ICD-10-PCS; 2021-03-19)
PROC: XW043E5 Introduction of Remdesivir Anti-infective into Central Vein, Percutaneous Approach, New Technology Group 5 (ICD-10-PCS; 2021-03-20)
PROC: 3E0DX3Z Introduction of Anti-inflammatory into Mouth and Pharynx, External Approach (ICD-10-PCS; 2021-03-25)
PROC: 0JH63XZ Insertion of Tunneled Vascular Access Device into Chest Subcutaneous Tissue and Fascia, Percutaneous Approach (ICD-10-PCS; 2021-03-30)
PROC: 05H533Z Insertion of Infusion Device into Right Subclavian Vein, Percutaneous Approach (ICD-10-PCS; 2021-03-30)
PROC: 02HV33Z Insertion of Infusion Device into Superior Vena Cava, Percutaneous Approach (ICD-10-PCS; 2021-04-01)
PROC: B548ZZA Ultrasonography of Superior Vena Cava, Guidance (ICD-10-PCS; 2021-04-01)
PROC: 5A09357 Assistance with Respiratory Ventilation, Less than 24 Consecutive Hours, Continuous Positive Airway Pressure (ICD-10-PCS; 2021-04-01)
PROC: 5A1935Z Respiratory Ventilation, Less than 24 Consecutive Hours (ICD-10-PCS; 2021-04-02)
PROC: 0BH18EZ Insertion of Endotracheal Airway into Trachea, Via Natural or Artificial Opening Endoscopic (ICD-10-PCS; 2021-04-02)
PROC: 5A12012 Performance of Cardiac Output, Single, Manual (ICD-10-PCS; 2021-04-02)
DX: A41.89 Other specified sepsis (principal); R65.21 Severe sepsis with septic shock; U07.1 COVID-19; J12.82 Pneumonia due to coronavirus disease 2019; G93.41 Metabolic encephalopathy; I50.23 Acute on chronic systolic (congestive) heart failure; E43 Unspecified severe protein-calorie malnutrition; D61.811 Other drug-induced pancytopenia; N18.6 End stage renal disease; N17.0 Acute kidney failure with tubular necrosis; J96.01 Acute respiratory failure with hypoxia; D68.9 Coagulation defect, unspecified; I48.20 Chronic atrial fibrillation, unspecified; Z16.12 Extended spectrum beta lactamase (ESBL) resistance; D61.818 Other pancytopenia; Z68.1 Body mass index [BMI] 19.9 or less, adult; I42.9 Cardiomyopathy, unspecified; N30.00 Acute cystitis without hematuria; E11.22 Type 2 diabetes mellitus with diabetic chronic kidney disease; Z66 Do not resuscitate; G40.909 Epilepsy, unspecified, not intractable, without status epilepticus; I69.30 Unspecified sequelae of cerebral infarction; J01.00 Acute maxillary sinusitis, unspecified; I46.9 Cardiac arrest, cause unspecified; R33.9 Retention of urine, unspecified; B96.20 Unspecified Escherichia coli [E. coli] as the cause of diseases classified elsewhere; L89.152 Pressure ulcer of sacral region, stage 2; S51.012A Laceration without foreign body of left elbow, initial encounter; E16.2 Hypoglycemia, unspecified; Z79.82 Long term (current) use of aspirin
CPT/HCPCS: 31500; 36415; 36558; 36600; 51700; 70450; 71045; 74470; 76937; 77001; 80048; 80053; 80061; 81001; 82140; 82550; 82553; 82607; 82728; 82746; 82805; 82948; 83036; 83540; 83605; 83735; 83880; 84100; 84466; 84484; 85025; 85384; 85610; 85730; 86705; 86706; 86850; 86900; 87040; 87071; 87086; 87186; 87205; 87340; 90962; 92950; 93005; 93306; 94002; 94799; 96372; 97139; 99251; 99285; C1769; C1892; J0171; J0248; J1450; J1644; J1940; J2001; J2185; J2250; J3010; J3370; J3480; J7030; J7040; J7050; J7799; P9017; P9047; U0002